=== PATIENT | female | born 1940 | race Caucasian/White ===

== ENCOUNTER 2017-12-20 13:30 | Inpatient (IN) ==
[2017-12-21] MEDS ORDERED: Chlorhexidine Gluconate 2% 1 Pack (2 Cloths) TOPICAL ONE (05:31)
[2017-12-21] MEDS ORDERED: Metoprolol Tartrate 25 MG Tablet PO ONE (05:31)
[2017-12-21] MEDS ORDERED: Sodium Chlor 0.9% Inj 500 ML IV.SIG SCH (06:00)
[2017-12-21] MEDS ORDERED: ceFAZolin 2 GM Premix Inj 2 GM/50 ML PIGGYBACK IV.SIG SCH (06:00)
[2017-12-21 06:23] LABS: INR 1.1 Ratio; Prothrombin Time 10.9 sec (9.8-11.6)
[2017-12-21] MEDS ORDERED: ceFAZolin 2 GM Premix Inj 2 GM/100 ML BAG IV.SIG ONE (07:22)
[2017-12-21] MEDS ORDERED: Lidocaine PF 1% Inj 5 ML Syringe OTHER ONE (07:30)
[2017-12-21] MEDS ORDERED: Phenylephrine/NS 1000 MCG/10ML Syringe IV.PUSH ONE (07:30)
[2017-12-21] MEDS ORDERED: Morphine Inj 4 MG/ML Vial IV.PUSH PRN (10:59)
[2017-12-21 11:00] LABS: ABG Base Excess -0.4 mmol/L (-2-2); ABG PCO2 44 mmHg (38-42); ABG PO2 191 mmHG (61-120)
[2017-12-21] MEDS ORDERED: fentaNYL Citrate Inj 100 MCG/2 ML Ampul ONE (11:50)
[2017-12-21] MEDS ORDERED: Sugammadex Inj 200 MG/2 ML Vial IV.PUSH ONE (11:50)
[2017-12-21] MEDS ORDERED: Sodium Chlor 0.9% Inj 1,000 ML IV.SIG SCH (12:00)
--- NOTE | 2017-12-21 12:00 | MP ---
cc: Júnior Jones MD DATE OF OPERATION: 12/21/2017 DATE OF SERVICE: 12/21/2017 PREOPERATIVE DIAGNOSIS: Left 4 cm lower pole renal mass. POSTOPERATIVE DIAGNOSIS: Left 4 cm lower pole renal mass. PROCEDURE: Robotic-assisted laparoscopic left partial nephrectomy with intraoperative ultrasound. SURGEON: Júnior Jones MD ANESTHESIA: General. COMPLICATIONS: None. ANTIBIOTICS: Ancef 1 gram. DRAINS: 1. Webster catheter. 2. LEONOR drain to bulb suction. ESTIMATED BLOOD LOSS: 300 mL. FLUIDS: 2 liters crystalloids. SPECIMENS: Left renal mass for permanent. DISPOSITION: Stable, to recovery. INDICATIONS: The patient is a 77-year-old female who was found to have an incidental lower pole left renal mass suspicious for renal cell carcinoma. Treatment options were discussed including active surveillance versus percutaneous cryoablation versus partial nephrectomy versus radical nephrectomy. Advantages and disadvantages, and potential side effects and complications of each were discussed. She elected to proceed with a robotic partial nephrectomy. After risks, benefits, and alternatives discussed with the patient wished to proceed and informed consent was obtained. DETAILS OF PROCEDURE: The patient was properly identified and brought back to the operating room and placed supine on the operating table. Appropriate timeout was performed. Under the direction of anesthesiology, the patient was intubated and induced under general anesthetic. Preoperative antibiotics in the form of Ancef 1 gram IV was given within 1 hour of the start of the procedure. The patient was then placed in a right lateral decubitus position with left side up. All pressure points were padded after a Webster catheter was placed. She was then prepped and draped in normal sterile surgical fashion. A stab incision was made superior and lateral to the umbilicus. A Veress needle was then used to gain access to the abdominal cavity. Pneumoperitoneum was achieved. The incision was then extended to approximately 2 cm. Then, under direct visualization, placed a 12 mm long camera port. The abdominal cavity was inspected. There was some small anterior abdominal wall adhesions near the spleen as well as some lower abdominal interior wall adhesions in the midline. However, I began by placing the ports under direct visualization. This began with the 8 mm left robotic port 2 fingerbreadths below the subcostal margin as well as a 5 mm assistant department manager port in the midline superior to the umbilicus. Next, I placed an 8 mm right-handed robotic port approximately a handbreadth off of the ASIS, trying to lay it off of the camera port. I initially attempted to place a 12 mm port in the midline inferiorly to the umbilicus, but there were some adhesions. Therefore, I switched the already placed 5 mm port to a 12 mm assistant department manager port. I then used a 5 mm laparoscopic scope and placed it through 1 of the 8 mm ports to look at the midline. There were some adhesions that were taken down with cold cut scissors. This then opened up a window to pass a 5 mm assistant department manager port inferior to the umbilicus under direct visualization. At this point, all ports were placed without any traumatic injury. The robot was then brought into position. I began by taking down the anterior abdominal wall adhesions. Once these were taken down this exposed the colon. The white line of Toldt was then taken down and the colon was reflected medially to expose the retroperitoneum. She did have a significant amount of fat that was quite friable that did have some periodic small bleeding here and there. At this time, I dissected the colon and mesentery off of the kidney until I found the gonadal vein. Due to the amount of perinephric fat and mesenteric fat as well, it was difficult to actually find the ureter. I followed the gonadal vein up to the insertion of the left renal vein. Since the gonadal vein was tethering the kidney I then did divide the left gonadal vein with a robotic vessel sealer. At this time I was able then to identify the ureter, which appeared to be intact. Fortunately, the mid ureter did get skeletonized in developing the plane between the psoas muscle and the posterior portion of the kidney. At this point, I dissected circumferentially around the renal vein and then I came across the large renal artery which was superior and inferior to the renal vein, but I was able to circumferentially get around the renal artery as well. At this point, I then dissected off the perinephric fat from the kidney and then the large tumor was exposed. It appeared to be mainly exophytic, approximately 4 cm in size, in the lower pole and medial part of the kidney. Intraoperative ultrasound was then used to confirm the depth of the tumor and the margins. At this point for 12.5 grams of mannitol were given by anesthesia to the patient. A straight laparoscope pole was then used to clamp off the artery. At this time I was then able to remove the tumor in its entirety and I was able to dissect down through the collecting system. Once the tumor was then fully removed, it was then placed in the colic gutter for later removal. At this time, a 0 StrataFix with a loop at the end was then used to clamshell the kidney to close the kidney shut. A second 0 StrataFix was also used from the inferior margin to help with hemostatic purposes. The kidney was then clamped for 25 minutes. There was still gentle ooze from the inferior portion of the renorrhaphy. This was then further repaired with the remaining StrataFix. Hem-O-Bill was then used to cinch down the suture. At this point the repair of the kidney appeared to be dry, with minimal bleeding. Evicel was then used for hemostatic purposes. The tumor was then placed in the EndoCatch bag and removed through the 12 mm assistant department manager port incision. A second look was performed. The renal bed appeared to be dry. A LEONOR drain was then placed through the 8 mm right hand robotic port, it was secured with 3-0 nylon. All ports were removed under direct visualization. Incision was then closed with 4-0 Monocryl and reinforced with Dermabond. Sponge, needle, and instrument counts were correct at the end of the case. The patient was subsequently extubated and sent to recovery room in stable condition. She was then transferred to the floor for routine postoperative care. MD GENNY Barclay/umair , 11:17 AM , 11:30 AM
[2017-12-21] MEDS ORDERED: *morphine SULFATE 4 MG/ML PERIprocedure ONLY ONE ×2 (12:40→14:10)
[2017-12-21] MEDS ORDERED: *Ondansetron Inj 4 MG/2 ML Vial PERIprocedural Use ONLY ONE (12:43)
[2017-12-21 12:45] LABS: Baso % (Auto) 0.2 % (0.0-2.0); Eos % (Auto) 0.2 % (0.0-4.0); Hematocrit 38.6 % (35.0-46.0); Hemoglobin 12.6 gm/dL (11.6-15.3); Lymph # (Auto) 1.2 th/mm3 (1.0-4.8); Lymph % (Auto) 8.5 % (9.0-44.0); Mean Corpuscular HGB Conc 32.8 % (32.0-36.0); Mean Corpuscular Hemoglobin 31.1 pg (27.0-34.0); Mean Corpuscular Volume 94.8 fL (80.0-100.0); Mean Platelet Volume 9.1 fL (7.0-11.0); Mono # (Auto) 0.3 th/mm3 (0.0-0.9); Mono % (Auto) 2.3 % (0.0-8.0); Neut # (Auto) 12.1 th/mm3 (1.8-7.7); Neut % (Auto) 88.8 % (16.0-70.0); Platelet Count 175 th/mm3 (150-450); Red Blood Count 4.07 mil/mm3 (4.00-5.30); Red Cell Distribution Width 13.7 % (11.6-17.2); White Blood Count 13.6 th/mm3 (4.0-11.0)
[2017-12-21 13:07] LABS: Anion Gap 7 meq/L (5-15); Blood Urea Nitrogen 9 mg/dL (7-18); Calcium 7.7 mg/dL (8.5-10.1); Chloride 106 meq/L (98-107); Glomerular Filtration Rate Greater Than 89 mL/min (>89); Glucose,Random 150 mg/dL (74-106); Potassium 3.3 meq/L (3.5-5.1); Sodium 141 meq/L (136-145)
[2017-12-21] MEDS: Latanoprost 0.005% Opth Drops 2.5 ML Bottle EACH EYE SCH (17:28)
--- NOTE | 2017-12-21 20:17 | ECG ---
Date Performed: 12/21/2017 Time Performed: 06:54:07 PTAGE: 77 years EKG: Sinus rhythm RIGHT BUNDLE BRANCH BLOCK ABNORMAL ECG PREVIOUS TRACING : 07/08/2007 13.58 Compared to previous tracing, RBBB present DOCTOR: Cristofer Glass Interpretating Date/Time 12/21/2017 20:17:31
[2017-12-21] MEDS: Docusate Sodium 100 MG Capsule PO SCH (20:27)
[2017-12-21] MEDS: Dorzolamide-Timolol 2/0.5% Opth Drops 10 ML Bottle EACH EYE SCH (20:27)
[2017-12-22 05:03] LABS: Hematocrit 35.4 % (35.0-46.0); Hemoglobin 11.7 gm/dL (11.6-15.3); Mean Corpuscular Hemoglobin 31.4 pg (27.0-34.0); Mean Platelet Volume 10.1 fL (7.0-11.0); Platelet Count 150 th/mm3 (150-450); Red Blood Count 3.72 mil/mm3 (4.00-5.30); Red Cell Distribution Width 13.8 % (11.6-17.2); White Blood Count 12.3 th/mm3 (4.0-11.0)
[2017-12-22] MEDS: Levothyroxine 88 MCG Tablet PO SCH (05:23)
[2017-12-22 06:02] LABS: Anion Gap 8 meq/L (5-15); Blood Urea Nitrogen 9 mg/dL (7-18); Calcium 7.4 mg/dL (8.5-10.1); Carbon Dioxide 27.3 meq/L (21.0-32.0); Chloride 107 meq/L (98-107); Glomerular Filtration Rate Greater Than 89 mL/min (>89); Glucose,Random 112 mg/dL (74-106); Sodium 142 meq/L (136-145)
[2017-12-22 06:24] LABS: Total Protein 6.2 g/dL (6.4-8.2)
[2017-12-22] MEDS: Docusate Sodium 100 MG Capsule PO SCH ×2 (08:48→20:44)
[2017-12-22] MEDS: amLODIPine 5 MG Tablet PO SCH (08:49)
[2017-12-22] MEDS: Dorzolamide-Timolol 2/0.5% Opth Drops 10 ML Bottle EACH EYE SCH ×2 (08:49→20:44)
--- NOTE | 2017-12-22 12:45 | P.PNURO ---
Subjective Patient symptoms today: c/o nausea. Thinks it is related to Percocet. Has not been out of bed. C/o mild , crampy abdominal pain. Denies fevers/chills/CP/SOB. Objective Vital Signs: Vital Signs 12/21/17 12:45 12/21/17 13:00 12/21/17 13:15 Temperature Pulse Rate 71 72 73 Respiratory Rate 12 11 L 12 Blood Pressure 111/62 114/59 L 110/56 L Pulse Oximetry 92 L 90 L 90 L 12/21/17 14:00 12/21/17 15:00 12/21/17 20:00 Temperature 98.4 F 97.5 F L Pulse Rate 76 76 87 Respiratory Rate 12 14 18 Blood Pressure 113/57 L 123/59 L 114/55 L Pulse Oximetry 92 L 93 L 94 L 12/22/17 00:00 12/22/17 08:00 Temperature 97.8 F 97.1 F L Pulse Rate 82 77 Respiratory Rate 18 18 Blood Pressure 107/53 L 99/54 L Pulse Oximetry 95 92 L Intake & Output 12/21/17 12/22/17 12/22/17 18:59 06:59 18:59 Intake Total 2820 / 2820 1460 / 1460 1000 / 1000 Output Total 1450 / 1450 975 / 975 Balance 1370 / 1370 485 / 485 1000 / 1000 Weight 67.2 kg Intake: IV 1200 / 1200 1100 / 1100 1000 / 1000 NS + KCl 20 mEq Inj 1,000 ML @ 1000 / 1000 1000 / 1000 100 mls/hr IV.CONT .Q10H [facility] Rx #:[id number] LR 1000 mL Inj 1,000 ML @ 30 1000 / 1000 mls/hr IV.SIG .Q24H [facility] Rx#: [id number] Ancef 2 GM Premix Inj 2 gm In 100 / 100 100 ml @ 0 mls/hr IV.SIG .STK- [facility] Rx#:[id number] Ancef Inj 1,000 MG In NS Inj 100 / 100 100 / 100 100 ML @ 200 mls/hr IV.SIG Q8H [facility] Rx#:[id number] Oral 120 / 120 360 / 360 Anesthesia Amount 1500 / 1500 Output: Estimated Blood Loss 300 / 300 Urine Amount (Catheter) 1030 / 1030 975 / 975 Indwelling Urethral Catheter 1030 / 1030 975 / 975 Wound Drainage 120 / 120 # 1 Left Lower Abdomen 120 / 120 Other: # Voids 1 Result Diagrams: 12/22/17 03:58 12/22/17 03:58 Medications and IVs: Active Medications Generic Name Dose Route Start Last Admin Trade Name Freq PRN Reason Stop Dose Admin Amlodipine Besylate 5 mg 12/22/17 09:00 12/22/17 08:49 Norvasc PO Not Given DAILY [facility] Atorvastatin Calcium 20 mg 12/21/17 21:00 12/21/17 20:27 Lipitor PO 20 mg HS [facility] Administration Docusate Sodium 100 mg 12/21/17 21:00 12/22/17 08:48 Colace PO Not Given BID [facility] Dorzolamide/Timolol 1 drop 12/21/17 21:00 12/22/17 08:49 Cosopt 2/0.5% Opth Drops EACH EYE 1 drop BID [facility] Administration Potassium Chloride/Sodium Chloride 1,000 mls @ 100 mls/hr 12/21/17 16:00 11:06 Ns + Kcl 20 Meq Inj IV.CONT 125 mls/hr .Q10H [facility] Administration Latanoprost 1 drop 12/21/17 18:00 12/21/17 17:28 Xalatan 0.005% Opth Drops EACH EYE 1 drop QPM [facility] Administration Levothyroxine Sodium 88 mcg 12/22/17 06:00 12/22/17 05:23 Synthroid PO 88 mcg DAILY@0600 [facility] Administration Morphine Sulfate 4 mg 12/21/17 10:59 Morphine Inj IV.PUSH Q4H PRN BREAKTHROUGH PAIN Ondansetron HCl 4 mg 12/21/17 10:59 12/22/17 08:48 Zofran Inj IV.PUSH 4 mg Q6H PRN Administration NAUSEA OR VOMITING Oxycodone/Acetaminophen 2 tab 12/21/17 11:00 12/22/17 05:24 Percocet 5/325 Mg PO 2 tab Q4H PRN Administration PAIN SCALE 6 TO 10 Oxycodone/Acetaminophen 1 tab 12/21/17 11:01 Percocet 5/325 Mg PO Q4H PRN PAIN SCALE 3 TO 5 Ropinirole HCl 0.25 mg 12/21/17 11:03 Requip PO TID PRN Restless Leg(S) Objective Remarks: NAD. A/O x 3 CTAB RRR abd soft, distended, mild tenderness on left side. Inc c/d/i. Ext NT. no edema. Assessment and Plan - Plan POD #1 s/p Robotic Left Partial Nephrectomy -Adjust pain medication -Hgb stable. Repeat in A.M. -Ambulate, IS -GI/DVT prophylaxis -Add Reglan.
[2017-12-22] MEDS ORDERED: Sod Chloride 0.9% Inj 1,000 ML IV.SIG SCH (12:59)
[2017-12-22] MEDS ORDERED: Sodium Chlor 0.9% Inj 1,000 ML IV.SIG SCH (13:00)
[2017-12-22 17:02] LABS: ABG Base Excess -0.6 mmol/L (-2-2); ABG PCO2 65 mmHg (38-42); ABG PO2 61 mmHg (61-120)
--- NOTE | 2017-12-22 17:23 | XR ---
EXAM DATE: 12/22/2017 5:16 PM EDT AGE/SEX: 77 years / Female INDICATIONS: Abdominal distention post partial left nephrectomy. CLINICAL DATA: This is the patient's initial encounter. Patient reports that signs and symptoms have been present for 1 day and indicates a pain score of 9/10. MEDICAL/SURGICAL HISTORY: None. . left partial nephrectomy COMPARISON: No prior exams available for comparison. FINDINGS: 3 view abdomen demonstrate there is a curvilinear stent or drain overlying the left iliac crest. Of u ncertain etiology could be external to the patient. The bowel gas pattern is unremarkable. There is a pical scar disease without pathologic calcifications. CONCLUSION: Catheter overlies left iliac crest. Bowel gas pattern is normal Electronically signed by: Adams Ag MD 12/22/2017 5:21 PM EDT
--- NOTE | 2017-12-22 17:29 | XR ---
EXAM DATE: 12/22/2017 5:19 PM EDT AGE/SEX: 77 years / Female INDICATIONS: . Shortness of breath. CLINICAL DATA: This is the patient's initial encounter. Patient reports that signs and symptoms have been present for 1 day and indicates a pain score of 7/10. MEDICAL/SURGICAL HISTORY: None. . left partial nephrectomy COMPARISON: POI, XR CHEST PA AND LAT, 05/10/2017. . FINDINGS: Two-view chest demonstrate the calcified implants bilaterally. There are small bilateral pleural effu sions left greater than right. The heart and mediastinum unremarkable. There is long-standing interst itial lung disease with diffuse emphysema. CONCLUSION: Interstitial lung disease. Small bilateral pleural effusions. Electronically signed by: Adams Ag MD 12/22/2017 5:28 PM EDT
[2017-12-22 17:33] LABS: Hematocrit 33.9 % (35.0-46.0); Hemoglobin 10.9 gm/dL (11.6-15.3)
--- NOTE | 2017-12-22 18:39 | P.CONIM ---
History of Present Illness Primary Care Provider: PROVIDER NON STAFF Family Provider: PROVIDER NON STAFF History of Present Illness: 77-year-old female history of hypothyroidism, hypertension, hyperlipidemia who is postoperative day 1 for elective robotic left partial nephrectomy. She says that she has had some nausea without any vomiting. Denies any chest pain. She reports a 2 month history of progressively worsening shortness of breath, especially when she is carrying something. She says she is seeing cardiology, Dr. Gutierrez, and workup has so far been negative. She is not on oxygen at home. Currently O2 sats 93% on 3 L. Patient says she is not feeling any more short of breath than she has been over the past couple months. She reports that post surgical abdominal pain is under control. Review of Systems All other systems reviewed negative except as stated in HPI [facility] - History History Provided By: Patient - Medical History Medical History: Medical History (Last Reviewed 12/21/17 @ 06:08 by Namita Arteaga) Glaucoma High cholesterol History of blood product transfusion Hypertension Hypothyroidism Kidney carcinoma Osteoporosis RLS (restless legs syndrome) - Surgical History Surgical History: Surgical History (Last Reviewed 12/21/17 @ 06:08 by Namita Arteaga) History of History of abdominoplasty History of breast augmentation History of cataract extraction with lens replacement History of facelift - Family History Family History: Family History (Last Updated 12/22/17 @ 18:38 by Jason Vazquez MD) Father Heart disease Mother Heart disease - Tobacco History Second Hand Smoke Exposure: No Smoking Status: Former smoker - Alcohol History How Often Do You Have a Drink Containing Alcohol: Never - Substance Use History Substance History: No History of Abuse Medications and Allergies Active Medications: Active Medications Albuterol (Duoneb Neb (Ayesha)) 1 ampul NEB Q6HR WHILE AWAKE NEB [facility] Albuterol (Duoneb Neb (Prn)) 1 ampul NEB Q4HR NEB PRN PRN Reason: SHORTNESS OF BREATH/WHEEZING Last Admin: 12/22/17 17:51 Dose: 1 ampul Amlodipine Besylate (Norvasc) 5 mg PO DAILY [facility] Last Admin: 12/22/17 08:49 Dose: Not Given Atorvastatin Calcium (Lipitor) 20 mg PO HS [facility] Last Admin: 12/21/17 20:27 Dose: 20 mg Docusate Sodium (Colace) 100 mg PO BID [facility] Last Admin: 12/22/17 08:48 Dose: Not Given Dorzolamide/Timolol (Cosopt 2/0.5% Opth Drops) 1 drop EACH EYE BID [facility] Last Admin: 12/22/17 08:49 Dose: 1 drop Ampicillin Sodium/Sulbactam (Sodium 3 gm/ Sodium Chloride) 100 mls @ 200 mls/ hr IV.SIG Q6HR [facility] Latanoprost (Xalatan 0.005% Opth Drops) 1 drop EACH EYE QPM [facility] Last Admin: 12/21/17 17:28 Dose: 1 drop Levothyroxine Sodium (Synthroid) 88 mcg PO DAILY@0600 [facility] Last Admin: 12/22/17 05:23 Dose: 88 mcg Methylprednisolone Sodium Succinate (Solumedrol Inj) 40 mg IV.PUSH Q6HR [facility] Metoclopramide HCl (Reglan Inj) 5 mg IV.PUSH Q8H [facility]; Protocol Last Admin: 12/22/17 14:58 Dose: 5 mg Ondansetron HCl (Zofran Inj) 4 mg IV.PUSH Q6H PRN PRN Reason: NAUSEA OR VOMITING Last Admin: 12/22/17 08:48 Dose: 4 mg Ropinirole HCl (Requip) 0.25 mg PO TID PRN PRN Reason: Restless Leg(S) Allergies Allergy/AdvReac Type Severity Reaction Status Date / Time No Known Allergies Allergy Verified 12/21/17 06:08 Home Medications Medication Instructions Recorded Confirmed Type alendronate 70 mg PO QWEEK 12/19/17 12/21/17 History amlodipine 5 mg PO DAILY 12/19/17 12/21/17 History atorvastatin 20 mg PO HS 12/19/17 12/21/17 History biotin 10,000 mcg PO DAILY 12/19/17 12/21/17 History calcium carbonate [Calcium 500] 500 mg PO DAILY 12/19/17 12/21/17 History cholecalciferol (vitamin D3) 1,000 unit PO DAILY 12/19/17 12/21/17 History [Vitamin D3] levothyroxine 88 mcg PO DAILY 12/19/17 12/21/17 History ropinirole 0.25 mg PO TID PRN 12/19/17 12/21/17 History dorzolamide-timolol 1 drp OPHTHALMIC (EYE) BID 12/21/17 12/21/17 History latanoprost 1 drp OPHTHALMIC (EYE) QPM 12/21/17 12/21/17 History Exam Vital signs: Vital Signs 12/21/17 20:00 12/22/17 00:00 12/22/17 08:00 Temperature 97.5 F L 97.8 F 97.1 F L Pulse Rate 87 82 77 Respiratory Rate 18 18 18 Blood Pressure 114/55 L 107/53 L 99/54 L Pulse Oximetry 94 L 95 92 L 12/22/17 12:00 12/22/17 15:38 12/22/17 15:40 Temperature 97.3 F L Pulse Rate 74 Respiratory Rate 18 Blood Pressure 93/55 L Pulse Oximetry 94 L 70 L 92 L 12/22/17 16:00 12/22/17 16:15 12/22/17 17:54 Temperature 97.8 F Pulse Rate 93 H 88 Respiratory Rate 22 18 Blood Pressure 115/55 L Pulse Oximetry 92 L 97 12/22/17 17:55 Temperature Pulse Rate Respiratory Rate Blood Pressure Pulse Oximetry 93 L Intake & Output 12/21/17 12/22/17 12/22/17 18:59 06:59 18:59 Intake Total 2820 / 2820 1460 / 1460 3570 / 3570 Output Total 1450 / 1450 975 / 975 265 / 265 Balance 1370 / 1370 485 / 485 3305 / 3305 Weight 67.2 kg Intake: IV 1200 / 1200 1100 / 1100 3250 / 3250 NS + KCl 20 mEq Inj 1,000 ML @ 1000 / 1000 1250 / 1250 125 mls/hr IV.CONT .Q8H [facility] Rx# :[id number] LR 1000 mL Inj 1,000 ML @ 30 1000 / 1000 mls/hr IV.SIG .Q24H [facility] Rx#: [id number] NS Inj 1,000 ML @ Wide Open IV. 1000 / 1000 SIG BOLUS [facility] Rx#:[id number] Ancef 2 GM Premix Inj 2 gm In 100 / 100 100 ml @ 0 mls/hr IV.SIG .STK- [facility] Rx#:[id number] Ancef Inj 1,000 MG In NS Inj 100 / 100 100 / 100 100 ML @ 200 mls/hr IV.SIG Q8H [facility] Rx#:[id number] Oral 120 / 120 360 / 360 320 / 320 Anesthesia Amount 1500 / 1500 Output: Urine 175 / 175 Estimated Blood Loss 300 / 300 Urine Amount (Catheter) 1030 / 1030 975 / 975 Indwelling Urethral Catheter 1030 / 1030 975 / 975 Wound Drainage 120 / 120 90 / 90 # 1 Left Lower Abdomen 120 / 120 90 / 90 Other: # Voids 1 Date of Last Bowel Movement 12/21/17 # Bowel Movements 0 Narrative: GENERAL: patient sitting up in bed. Appears comfortable. She is awake, alert. Oriented 3. SKIN: Warm and dry. HEAD: Atraumatic. Normocephalic. EYES: Pupils equal and round. No scleral icterus. No injection or drainage. ENT: No nasal bleeding or discharge. Mucous membranes pink and moist. NECK: Trachea midline. No JVD. CARDIOVASCULAR: Regular rate and rhythm. RESPIRATORY: No accessory muscle use. Clear to auscultation. Breath sounds equal bilaterally. no rhonchi, no wheezes. GASTROINTESTINAL: Abdomen somewhat distended but nontender.. Hepatic and splenic margins not palpable. MUSCULOSKELETAL: Extremities without clubbing, cyanosis, or edema. No obvious deformities. NEUROLOGICAL: Awake and alert. No obvious cranial nerve deficits. Motor grossly within normal limits. Five out of 5 muscle strength in the arms and legs. Normal speech. PSYCHIATRIC: Appropriate mood and affect; insight and judgment normal. Results - Labs CBC & Chem 7: 12/22/17 16:33 12/22/17 03:58 Labs: Laboratory Results - last 24 hr 12/22/17 12/22/17 12/22/17 03:58 03:58 04:30 WBC 12.3 H RBC 3.72 L Hgb 11.7 Hct 35.4 MCV 95.0 MCH 31.4 MCHC 33.0 RDW 13.8 Plt Count 150 MPV 10.1 Puncture Site Patient Temperature O2 Saturation ABG pH ABG pCO2 ABG pO2 ABG HCO3 ABG O2 Content ABG Base Excess ABG Methemoglobin Xavier Test Hemoglobin Carboxyhemoglobin O2 Delivery Device Liter Flow Critical Value Sodium 142 Potassium 4.0 Chloride 107 Carbon Dioxide 27.3 Anion Gap 8 BUN 9 Creatinine 0.52 Estimated GFR Greater than 89 Random Glucose 112 H Calcium 7.4 L* Prot Corrected Calcium 7.9 L Total Protein 6.2 L Nuha-Renal Creatinine 0.4463 12/22/17 12/22/17 16:33 16:50 WBC RBC Hgb 10.9 L Hct 33.9 L MCV MCH MCHC RDW Plt Count MPV Puncture Site Left radial Patient Temperature 98.6 O2 Saturation 87 L* ABG pH 7.23 L* ABG pCO2 65 H* ABG pO2 61 ABG HCO3 26 ABG O2 Content 13.4 ABG Base Excess -0.6 ABG Methemoglobin 1.1 Xavier Test Present Hemoglobin 10.9 L Carboxyhemoglobin 1.5 O2 Delivery Device Nasal cannula Liter Flow 3.00 Critical Value Yes Sodium Potassium Chloride Carbon Dioxide Anion Gap BUN Creatinine Estimated GFR Random Glucose Calcium Prot Corrected Calcium Total Protein Nuha-Renal Creatinine - Imaging Impressions Abdomen X-Ray 12/22/17 00:00 CONCLUSION: Catheter overlies left iliac crest. Bowel gas pattern is normal Chest X-Ray 12/22/17 00:00 CONCLUSION: Interstitial lung disease. Small bilateral pleural effusions. Assessment and Plan - Plan //Postoperative day one left partial nephrectomy Postoperative management as per surgical service Due to respiratory failure, have discontinued all narcotics. //Acute hypercapnic respiratory failure //Acute hypoxic respiratory failure //Suspected aspiration pneumonia //Leukocytosis -ABG reviewed with pH 7.23, pCO2 65 Chest x-ray was right middle lobe infiltrate. Bilateral pleural effusions. Check BNP. = Will start IV steroids, scheduled and as needed DuoNeb's, incentive spirometer and Acapella. Discontinue all narcotics for now. Consult pulmonology. -Discontinue IV fluids. = Patient denies any chest pain, however EKG done yesterday changed from 10 years ago. New right bundle branch block. -Repeat ABG after duonebs and IV steroids. //Intraoperative blood loss. Patient received 1 unit of PRBCs. //Hyperlipidemia. Chronic. Continue home meds //Hypertension. Blood pressure acceptable. Continue home meds. //Glaucoma. Continue home drops //Hypothyroidism. Continue home medication. Check TSH //Restless leg syndrome. Continue home meds. Discussed Condition With: patient, nurse, at bedside.
[2017-12-22] MEDS: MethylPREDNISolone Sod Succinate Inj 40 MG/ML Vial IV.PUSH SCH ×2 (18:41→23:46)
[2017-12-22] MEDS: Latanoprost 0.005% Opth Drops 2.5 ML Bottle EACH EYE SCH (18:41)
[2017-12-22] MEDS: Ampicillin/Sulbactam Inj 3 GM in Sodium Chloride 0.9% Inj 100 ML IV.SIG SCH ×2 (18:41→23:46)
[2017-12-22 19:16] LABS: ABG Base Excess -0.4 mmol/L (-2-2); ABG PCO2 63 mmHg (38-42); ABG PO2 60 mmHg (61-120)
[2017-12-22 22:15] LABS: ABG Base Excess 0.1 mmol/L (-2-2); ABG PCO2 59 mmHg (38-42); ABG PO2 74 mmHg (61-120)
[2017-12-23 05:11] LABS: Hematocrit 33.5 % (35.0-46.0); Hemoglobin 11.1 gm/dL (11.6-15.3); Mean Corpuscular HGB Conc 33.1 % (32.0-36.0); Mean Corpuscular Hemoglobin 31.4 pg (27.0-34.0); Mean Platelet Volume 10.1 fL (7.0-11.0); Platelet Count 125 th/mm3 (150-450); Red Blood Count 3.53 mil/mm3 (4.00-5.30); Red Cell Distribution Width 14.2 % (11.6-17.2); White Blood Count 11.2 th/mm3 (4.0-11.0)
[2017-12-23 05:29] LABS: Anion Gap 6 meq/L (5-15); Blood Urea Nitrogen 11 mg/dL (7-18); Calcium 7.8 mg/dL (8.5-10.1); Carbon Dioxide 28.6 meq/L (21.0-32.0); Chloride 108 meq/L (98-107); Glomerular Filtration Rate Greater Than 89 mL/min (>89); Glucose,Random 137 mg/dL (74-106); Sodium 143 meq/L (136-145)
[2017-12-23] MEDS: Levothyroxine 88 MCG Tablet PO SCH (05:45)
[2017-12-23] MEDS: MethylPREDNISolone Sod Succinate Inj 40 MG/ML Vial IV.PUSH SCH ×4 (05:45→23:56)
[2017-12-23] MEDS: Ampicillin/Sulbactam Inj 3 GM in Sodium Chloride 0.9% Inj 100 ML IV.SIG SCH ×4 (05:46→23:57)
[2017-12-23] MEDS: Docusate Sodium 100 MG Capsule PO SCH ×2 (09:32→21:08)
[2017-12-23] MEDS: amLODIPine 5 MG Tablet PO SCH (09:32)
[2017-12-23] MEDS: Dorzolamide-Timolol 2/0.5% Opth Drops 10 ML Bottle EACH EYE SCH ×2 (09:37→21:09)
--- NOTE | 2017-12-23 11:20 | P.PNURO ---
Subjective Patient symptoms today: Pt was seen at the bedside. Pain controlled. Tolerates current diet well. IM consulted for SOB and saw her yesterday. recommended Pulmonology consult. Also IV fluids and narcotics were d/c . She is refusing BiPAP. NO BM yet. Admits passing small amount of flatus. Nausea is better. Her SOB is better today. She still feels weak and cant walk, but sits in the chair Labs and VS are stable. As per Pulmonary CTA ordered Objective Vital Signs: Vital Signs 12/22/17 12:00 12/22/17 15:38 12/22/17 15:40 Temperature 97.3 F L Pulse Rate 74 Respiratory Rate 18 Blood Pressure 93/55 L Pulse Oximetry 94 L 70 L 92 L 12/22/17 16:00 12/22/17 16:15 12/22/17 17:54 Temperature 97.8 F Pulse Rate 93 H 88 Respiratory Rate 22 18 Blood Pressure 115/55 L Pulse Oximetry 92 L 97 12/22/17 17:55 12/22/17 20:00 12/22/17 20:20 Temperature 97.4 F L Pulse Rate 92 H 91 H Respiratory Rate 20 20 Blood Pressure 133/62 Pulse Oximetry 93 L 91 L 12/22/17 21:09 12/22/17 23:19 12/23/17 00:00 Temperature 98 F Pulse Rate 92 H Respiratory Rate 18 Blood Pressure 116/56 L Pulse Oximetry 94 L 94 L 91 L 12/23/17 04:00 12/23/17 08:00 Temperature 98.2 F 97.7 F Pulse Rate 89 102 H Respiratory Rate 18 18 Blood Pressure 127/59 L 153/68 H Pulse Oximetry 91 L 86 L Intake & Output 12/22/17 12/23/17 12/23/17 18:59 06:59 18:59 Intake Total 3570 / 3570 540 / 540 Output Total 265 / 265 720 / 720 Balance 3305 / 3305 -180 / -180 Weight 69.1 kg Intake: IV 3250 / 3250 300 / 300 NS + KCl 20 mEq Inj 1,000 ML @ 1250 / 1250 125 mls/hr IV.CONT .Q8H AYESHA Rx# :[id number] Unasyn Inj 3 GM In NS Inj 100 300 / 300 ML @ 200 mls/hr IV.SIG Q6HR AYESHA Rx#:[id number] NS Inj 1,000 ML @ Wide Open IV. 1000 / 1000 SIG BOLUS AYESHA Rx#:[id number] Oral 320 / 320 240 / 240 Output: Urine 175 / 175 630 / 630 Wound Drainage 90 / # 1 Left Lower Abdomen 90 / 90 Other: # Voids 2 Date of Last Bowel Movement 12/21/17 12/21/17 # Bowel Movements 0 Result Diagrams: 12/23/17 03:51 12/23/17 03:51 Imaging: Impressions Abdomen X-Ray 12/22/17 00:00 CONCLUSION: Catheter overlies left iliac crest. Bowel gas pattern is normal Chest X-Ray 12/22/17 00:00 CONCLUSION: Interstitial lung disease. Small bilateral pleural effusions. Medications and IVs: Active Medications Generic Name Dose Route Start Last Admin Trade Name Freq PRN Reason Stop Dose Admin Albuterol 1 ampul 12/22/17 20:00 12/23/17 08:51 Duoneb Neb (Ayesha) NEB 1 ampul Q6HR WHILE AWAKE NEB AYESHA Administration Albuterol 1 ampul 12/22/17 16:09 12/22/17 17:51 Duoneb Neb (Prn) NEB 1 ampul Q4HR NEB PRN Administration SHORTNESS OF BREATH/WHEEZING Amlodipine Besylate 5 mg 12/22/17 09:00 12/23/17 09:32 Norvasc PO 5 mg DAILY AYESHA Administration Atorvastatin Calcium 20 mg 12/21/17 21:00 12/22/17 20:44 Lipitor PO 20 mg HS AYESHA Administration Docusate Sodium 100 mg 12/21/17 21:00 12/23/17 09:32 Colace PO 100 mg BID AYESHA Administration Dorzolamide/Timolol 1 drop 12/21/17 21:00 12/23/17 09:37 Cosopt 2/0.5% Opth Drops EACH EYE 1 drop BID AYESHA Administration Ampicillin Sodium/Sulbactam 100 mls @ 200 mls/hr 12/22/17 19:00 12/23/17 06: 22 Sodium 3 gm/ Sodium Chloride IV.SIG Infused Q6HR AYESHA Infusion Latanoprost 1 drop 12/21/17 18:00 12/22/17 18:41 Xalatan 0.005% Opth Drops EACH EYE 1 drop QPM AYESHA Administration Levothyroxine Sodium 88 mcg 12/22/17 06:00 09/21/18 05:45 Synthroid PO 88 mcg DAILY@0600 YAESHA Administration Methylprednisolone Sodium Succinate 40 mg 12/22/17 18:15 12/23/17 05:45 Solumedrol Inj IV.PUSH 40 mg Q6HR AYESHA Administration Metoclopramide HCl 5 mg 12/22/17 14:00 12/23/17 05:45 Reglan Inj IV.PUSH 5 mg Q8H AYESHA Administration Protocol Ondansetron HCl 4 mg 12/21/17 10:59 12/22/17 08:48 Zofran Inj IV.PUSH 4 mg Q6H PRN Administration NAUSEA OR VOMITING Ropinirole HCl 0.25 mg 12/21/17 11:03 Requip PO TID PRN Restless Leg(S) Objective Remarks: NAD. A/O x 3 CTAB RRR abd soft, slightly less distended, Inc c/d/i. Ext NT. no edema. Assessment and Plan - Plan POD #2 s/p Robotic Left Partial Nephrectomy -Continue management as per IM, consult and recs are appreciated -Pain control prn -Hgb stable. -Ambulate as tolerated, IS -Advance diet - LEONOR to be removed -GI/DVT prophylaxis -Follow up on Pulm consult and CTA - PT to help with ambulating Discussed Condition With: Dr Robert BLANTON attending
--- NOTE | 2017-12-23 11:46 | P.PNIM ---
Subjective Interval history: Patient says she is feeling all right. Denies any chest pain or shortness of breath. Denies nausea vomiting. Physical Exam Vital signs: Vital Signs 12/22/17 12:00 12/22/17 15:38 12/22/17 15:40 Temperature 97.3 F L Pulse Rate 74 Respiratory Rate 18 Blood Pressure 93/55 L Pulse Oximetry 94 L 70 L 92 L 12/22/17 16:00 12/22/17 16:15 12/22/17 17:54 Temperature 97.8 F Pulse Rate 93 H 88 Respiratory Rate 22 18 Blood Pressure 115/55 L Pulse Oximetry 92 L 97 12/22/17 17:55 12/22/17 20:00 12/22/17 20:20 Temperature 97.4 F L Pulse Rate 92 H 91 H Respiratory Rate 20 20 Blood Pressure 133/62 Pulse Oximetry 93 L 91 L 12/22/17 21:09 12/22/17 23:19 12/23/17 00:00 Temperature 98 F Pulse Rate 92 H Respiratory Rate 18 Blood Pressure 116/56 L Pulse Oximetry 94 L 94 L 91 L 12/23/17 04:00 12/23/17 08:00 Temperature 98.2 F 97.7 F Pulse Rate 89 102 H Respiratory Rate 18 18 Blood Pressure 127/59 L 153/68 H Pulse Oximetry 91 L 86 L Intake & Output 12/22/17 12/23/17 12/23/17 18:59 06:59 18:59 Intake Total 3570 / 3570 540 / 540 Output Total 265 / 265 720 / 720 Balance 3305 / 3305 -180 / -180 Weight 69.1 kg Intake: IV 3250 / 3250 300 / 300 NS + KCl 20 mEq Inj 1,000 ML @ 1250 / 1250 125 mls/hr IV.CONT .Q8H TICO Rx# :[id number] Unasyn Inj 3 GM In NS Inj 100 300 / 300 ML @ 200 mls/hr IV.SIG Q6HR TICO Rx#:[id number] NS Inj 1,000 ML @ Wide Open IV. 1000 / 1000 SIG BOLUS TICO Rx#:[id number] Oral 320 / 320 240 / 240 Output: Urine 175 / 175 630 / 630 Wound Drainage # 1 Left Lower Abdomen Other: # Voids 2 Date of Last Bowel Movement 12/21/17 12/21/17 # Bowel Movements 0 Narrative: GENERAL: Somnolent, wakes up for exam. Patient lying in bed. Appears comfortable. SKIN: Warm and dry. HEAD: Normocephalic. EYES: No scleral icterus. No injection or drainage. NECK: Supple, trachea midline. No JVD. CARDIOVASCULAR: Regular rate and rhythm without murmurs, gallops, or rubs. RESPIRATORY: Breath sounds equal bilaterally. No accessory muscle use. GASTROINTESTINAL: Abdomen soft, non-tender, nondistended. MUSCULOSKELETAL: No cyanosis, or edema. BACK: Nontender without obvious deformity. No CVA tenderness. - Urinary Catheter Management Indwelling Urethral Catheter Cath placed during this visit: yes Reason for continuing: Hourly intake/output Insertion date: 12/21/17 Insertion time: 07:45 Results - Labs CBC & Chem 7: 12/23/17 03:51 12/23/17 03:51 Laboratory Results - last 24 hr 12/22/17 12/22/17 12/22/17 03:58 03:58 16:33 WBC RBC Hgb 10.9 L Hct 33.9 L MCV MCH MCHC RDW Plt Count MPV Puncture Site Patient Temperature O2 Saturation ABG pH ABG pCO2 ABG pO2 ABG HCO3 ABG O2 Content ABG Base Excess ABG Methemoglobin Xavier Test Hemoglobin Carboxyhemoglobin O2 Delivery Device Liter Flow Vent Setting Inspired O2 Critical Value Sodium Potassium Chloride Carbon Dioxide Anion Gap BUN Creatinine Estimated GFR Random Glucose Calcium B-Natriuretic Peptide 115 H TSH 0.503 12/22/17 12/22/17 12/22/17 16:50 19:05 22:04 WBC RBC Hgb Hct MCV MCH MCHC RDW Plt Count MPV Puncture Site Left radial Right radial Right brachial Patient Temperature 98.6 98.6 98.6 O2 Saturation 87 L* 87 L* 92 ABG pH 7.23 L* 7.24 L* 7.27 L* ABG pCO2 65 H* 63 H* 59 H* ABG pO2 61 60 L 74 ABG HCO3 26 26 26 ABG O2 Content 13.4 13.3 14.5 ABG Base Excess -0.6 -0.4 0.1 ABG Methemoglobin 1.1 1.0 1.1 Xavier Test Present Present Present Hemoglobin 10.9 L 10.8 L 11.1 L Carboxyhemoglobin 1.5 1.6 1.5 O2 Delivery Device Nasal cannula Nasal cannula Bipap Liter Flow 3.00 3.00 Vent Setting See comments Inspired O2 40 Critical Value Yes Yes Yes Sodium Potassium Chloride Carbon Dioxide Anion Gap BUN Creatinine Estimated GFR Random Glucose Calcium B-Natriuretic Peptide TSH 12/23/17 12/23/17 03:51 03:51 WBC 11.2 H RBC 3.53 L Hgb 11.1 L Hct 33.5 L MCV 95.0 MCH 31.4 MCHC 33.1 RDW 14.2 Plt Count 125 L MPV 10.1 Puncture Site Patient Temperature O2 Saturation ABG pH ABG pCO2 ABG pO2 ABG HCO3 ABG O2 Content ABG Base Excess ABG Methemoglobin Xavier Test Hemoglobin Carboxyhemoglobin O2 Delivery Device Liter Flow Vent Setting Inspired O2 Critical Value Sodium 143 Potassium 4.0 Chloride 108 H Carbon Dioxide 28.6 Anion Gap 6 BUN 11 Creatinine 0.47 L Estimated GFR Greater than 89 Random Glucose 137 H Calcium 7.8 L B-Natriuretic Peptide TSH - Imaging Impressions Abdomen X-Ray 12/22/17 00:00 CONCLUSION: Catheter overlies left iliac crest. Bowel gas pattern is normal Chest X-Ray 12/22/17 00:00 CONCLUSION: Interstitial lung disease. Small bilateral pleural effusions. Assessment and Plan - Plan //Postoperative day one left partial nephrectomy Postoperative management as per surgical service Due to respiratory failure, have discontinued all narcotics. //Acute hypercapnic respiratory failure //Acute hypoxic respiratory failure //Suspected aspiration pneumonia //Leukocytosis -ABG reviewed with pH 7.23, pCO2 65 Chest x-ray was right middle lobe infiltrate. Bilateral pleural effusions. Check BNP. = Will start IV steroids, scheduled and as needed DuoNeb's, incentive spirometer and Acapella. Discontinue all narcotics for now. Consult pulmonology. -Discontinue IV fluids. = Patient denies any chest pain, however EKG done yesterday changed from 10 years ago. New right bundle branch block. -Repeat ABG after duonebs and IV steroids. = BNP only mildly elevated at 115. Repeat ABG with continued respiratory acidosis. Continue to minimize narcotics. Pulmonary consultation pending. Appreciate assistance. Continue duo nebs. //Intraoperative blood loss. Patient received 1 unit of PRBCs. //Hyperlipidemia. Chronic. Continue home meds //Hypertension. Blood pressure acceptable. Continue home meds. //Glaucoma. Continue home drops //Hypothyroidism. Continue home medication. Check TSH //Restless leg syndrome. Continue home meds. Discharge Planning: We will continue to follow.
--- NOTE | 2017-12-23 12:31 | MB ---
cc: Sade Kang MD DATE: 12/23/2017 REASON FOR CONSULTATION: Shortness of breath. PULMONARY CONSULTATION REFERRING PHYSICIAN: Dr. Vazquez. HISTORY OF PRESENT ILLNESS: The patient is a 77-year-old female with past medical history of hypertension, hypothyroidism, hyperlipidemia, tobacco abuse, status post elective robotic left partial nephrectomy. She had a chest x-ray on 12/22/2017, which showed small bilateral pleural effusions along with interstitial lung disease with diffuse emphysema. She quit smoking 14 years ago and used to smoke up to 2 packs per day for 15 years. She denies any use of home oxygen or any use of nebulizers at home. She is currently on 3-liters oxygen with saturation ranges between 91%-94%. She denies any chest pain, orthopnea, PND, edema of lower extremities. ABG was performed last night, which showed acute hypercapnic respiratory acidosis with a pH of 7.27, CO2 59, PaO2 of 74, bicarbonate of 26, and saturation 92% on BiPAP. She is currently off of BiPAP. The patient appears comfortable. PAST MEDICAL HISTORY: Significant for hypertension, hyperlipidemia, hypothyroidism, renal CA, osteoporosis, restless leg syndrome, glaucoma. PAST SURGICAL HISTORY: Status post left partial nephrectomy, previous , previous abdominoplasty, previous cataract extraction with lens replacement. SOCIAL HISTORY: Quit smoking 14 years ago, used to smoke up to 2 packs per day for 15 years, nondrinker. ALLERGIES: NO KNOWN DRUG ALLERGIES. FAMILY HISTORY: Noncontributory to present illness reported. CURRENT MEDICATIONS: 1. Lipitor. 2. Unasyn. 3. Solu-Medrol 4. Requip. PHYSICAL EXAMINATION: GENERAL: A 77-year-old female lying in bed in mild respiratory distress; off BiPAP. VITAL SIGNS: Temperature 97.7, pulse 102, respiratory rate of 18, blood pressure 153/68, saturation 91%-94% on 3 liters oxygen. HEENT: Atraumatic, normocephalic. Pupils are equal, round, reactive to light and accommodation. Extraocular muscles intact. Conjunctivae pink. Nonicteric sclerae. Oral mucosa within normal. NECK: Supple. No JVD. hepatomegaly. Trachea in the midline. CARDIOVASCULAR: Tachycardic. Normal S1, S2. No murmurs, rubs or gallops noted. PULMONARY: Bilateral air entry with a few coarse breath sounds at the bases. ABDOMEN: Soft, nontender, nondistended, positive bowel sounds. EXTREMITIES: No cyanosis, clubbing, edema. NEUROLOGIC: No focal sensory deficit. LABORATORY DATA: WBC 11.2, hemoglobin 11.1, hematocrit 33, platelet count 125. Sodium 143, potassium 4, chloride 108, CO2 28, BUN 11, creatinine 0.47, glucose 137. RADIOGRAPHIC STUDIES: Chest x-ray from 12/22/2017 showed small bilateral pleural effusions, left greater than the right, with interstitial lung disease and diffuse emphysema. IMPRESSION: 1. Acute hypoxemic and hypercapnic respiratory insufficiency. 2. Status post robotic left partial nephrectomy; postoperative day number 2. 3. Chronic obstructive pulmonary disease. 4. Chronic tobacco use. 5. Interstitial lung disease. 6. Mild leukocytosis. 7. Hypertension. 8. Hyperlipidemia. 9. Hypothyroidism. 10. Restless leg syndrome. RECOMMENDATIONS: 1. Wean down oxygen as tolerated and maintain sats above 92%. 2. Bronchodilators in the form of DuoNeb. In addition, we will add a Symbicort 160/4.5 two puffs b.i.d. 3. Increase Solu-Medrol; 60 mg IV every 6. 4. Check ABG now. 5. Continue with BiPAP p.r.n. for respiratory distress. 6. We will proceed with CT angiogram of the chest to rule out PE and for further evaluation of pulmonary parenchyma. 7. We will diurese with Lasix 40 mg IV x1 given positive fluid balance. IV fluid has been discontinued. 8. Continue with antibiotics in the form of Unasyn as ordered. Monitor for signs of infection, which include fever and WBC. I will obtain a sputum culture with Gram stain. 9. Continue with Requip for her restless leg syndrome. 10. Incentive spirometry. 11. Gastrointestinal and deep venous thrombosis prophylaxis per primary team. 12. Further recommendations will be based on hospital course. Thank you for this consultation and allowing us to participate in this patient's care. MD EMILIANA Davis/flavia , 12:04 PM , 12:17 PM
--- NOTE | 2017-12-23 17:12 | CT ---
EXAM DATE: 12/23/2017 4:55 PM EDT AGE/SEX: 77 years / Female INDICATIONS: Shortness of breath. CLINICAL DATA: This is the patient's initial encounter. Patient reports that signs and symptoms have been present for 1 day and indicates a pain score of 0/10. MEDICAL/SURGICAL HISTORY: Hypertension. Renal cell carcinoma. section. Breast augmentati on. RADIATION DOSE: 15.65 CTDI (mGy) COMPARISON: No prior exams available for comparison. TECHNIQUE: Volumetric scanning was performed using a multi-row detector CT scanner during bolus infu humberto of 71 ml Omnipaque 350 (iohexol) nonionic water-soluble contrast as a single exam dose. The anitra a was post processed with a variety of visualization algorithms including full volume maximum intensi ty projection and sliding thin slab reformation. Using automated exposure control and adjustment of the mA and/or kV according to patient size, radiation dose was kept as low as reasonably achievable t o obtain optimal diagnostic quality images. DICOM format image data is available electronically for review and comparison. FINDINGS: Pulmonary Arteries: No filling defect is identified through the segmental and some of the subsegmenta l level pulmonary arteries. Lungs: There is respiratory motion artifact. Lungs demonstrate moderate to severe centrilobular emph ysema. There is bilateral lower lobe compressive atelectasis and/or consolidation adjacent to the sma ll bilateral pleural effusions. No pneumothorax is present. Mediastinum: The heart and great vessels demonstrate no acute abnormality. No lymphadenopathy is vis ualized. There is coronary artery calcification and severe atherosclerotic disease of the aorta. Pleurae: There are small bilateral pleural effusions. No pleural thickening is present. Axillae: No lymphadenopathy. Musculoskeletal: No acute osseous abnormality is identified. There are degenerative changes througho ut the thoracic spine. Other: Visualized upper abdominal structures demonstrate no acute abnormality. Cutaneous air is visu alized along the right anterior abdominal wall in the inferior chest and upper abdomen. Bilateral theresa ast implants are present calcified capsules. Both have features suspicious for a rupture. CONCLUSION: 1. No PE is identified. 2. Moderate to severe emphysema with small bilateral pleural effusions and adjacent compressive atel ectasis and/or consolidation in both lower lobes. 3. Nonspecific subcutaneous air on the right of the inferior chest wall and upper abdomen. Suggest c orrelating clinically for any recent injection or laceration in this area. 4. Nonacute findings include coronary artery calcification, severe atherosclerotic disease of the ao rta, and bilateral breast implants with features suggesting rupture. Electronically signed by: Paramjit Ugalde MD 12/23/2017 5:11 PM EDT
[2017-12-23] MEDS: Budesonide-Formoterol 160/4.5 MCG 6 GM Inhaler INH SCH ×2 (18:19→21:09)
[2017-12-23] MEDS: Latanoprost 0.005% Opth Drops 2.5 ML Bottle EACH EYE SCH (18:39)
[2017-12-24] MEDS: Ampicillin/Sulbactam Inj 3 GM in Sodium Chloride 0.9% Inj 100 ML IV.SIG SCH ×3 (05:22→18:19)
[2017-12-24] MEDS: Levothyroxine 88 MCG Tablet PO SCH (05:23)
[2017-12-24] MEDS: MethylPREDNISolone Sod Succinate Inj 40 MG/ML Vial IV.PUSH SCH ×3 (05:24→18:20)
[2017-12-24] MEDS: Docusate Sodium 100 MG Capsule PO SCH ×2 (09:43→20:50)
[2017-12-24] MEDS: amLODIPine 5 MG Tablet PO SCH (09:43)
[2017-12-24] MEDS: Dorzolamide-Timolol 2/0.5% Opth Drops 10 ML Bottle EACH EYE SCH ×2 (09:44→20:49)
[2017-12-24] MEDS: Budesonide-Formoterol 160/4.5 MCG 6 GM Inhaler INH SCH ×2 (09:45→20:45)
--- NOTE | 2017-12-24 10:03 | P.PNPL ---
Subjective Interval history: Patient is sitting up in chair in NAD. Afebrile, on 5L oxygen. Feeling better, CTA chest yesterday showed no evidence of PE. Physical Exam Vital signs: Vital Signs 12/23/17 12:00 12/23/17 12:33 12/23/17 16:00 Temperature 97.6 F 97.7 F Pulse Rate 98 H 102 H 116 H Respiratory Rate 18 15 18 Blood Pressure 139/69 154/70 H Pulse Oximetry 93 L 93 L 12/23/17 19:15 12/23/17 20:16 12/23/17 23:55 Temperature 97.8 F 98.0 F Pulse Rate 111 H 97 H Respiratory Rate 17 18 Blood Pressure 154/70 H 140/63 Pulse Oximetry 95 93 L 93 L 12/24/17 04:43 12/24/17 07:22 12/24/17 08:00 Temperature 97.5 F L 97.1 F L Pulse Rate 93 H 95 H 97 H Respiratory Rate 18 16 18 Blood Pressure 148/76 H 164/79 H Pulse Oximetry 95 96 97 Intake & Output 12/23/17 12/24/17 12/24/17 18:59 06:59 18:59 Intake Total 680 / 680 680 / 680 Balance 680 / 680 680 / 680 Weight 69 kg Intake: IV 200 / 200 200 / 200 Unasyn Inj 3 GM In NS Inj 100 200 / 200 200 / 200 ML @ 200 mls/hr IV.SIG Q6HR [facility] Rx#:[id number] Oral 480 / 480 480 / 480 Other: # Voids 4 3 Date of Last Bowel Movement 12/23/17 - Constitutional no acute distress - Routine HEENT Exam Head: Present: normocephalic, atraumatic Eye: Present: EOMI, PERRL, normal accommodation, conjunctivae pink ENT: Present: mucous membranes moist - Routine Neck Exam Present: supple, full ROM, trachea midline - Routine Respiratory Exam Present: CTA bilaterally - Routine Cardiovascular Exam Present: RRR, S1, S2 - Routine Abdominal Exam Present: soft, normoactive bowel sounds - Routine Extremities Exam Present: full ROM - Routine Skin Exam Present: intact, dry - Routine Neurological Exam Present: alert, oriented X3, CN II-XII intact - Routine Psychiatric Exam Present: normal affect - Urinary Catheter Management Indwelling Urethral Catheter Cath placed during this visit: yes Reason for continuing: Hourly intake/output Insertion date: 12/21/17 Insertion time: 07:45 Assessment and Plan - Plan 1. Acute hypoxemic and hypercapnic respiratory insufficiency. 2. Status post robotic left partial nephrectomy 3. COPD 4. Tobacco use. 5. Thrombocytopenia 6. Mild leukocytosis. 7. Hypertension. 8. Hyperlipidemia. 9. Hypothyroidism. 10. Restless leg syndrome. Plan Continue to Wean down oxygen as tolerated and maintain sats > 92%. Bronchodilators(DuoNeb, Symbicort ), IS Solu-Medrol; 60 mg IV every 6. Check ABG BiPAP p.r.n. for respiratory distress. CT chest: No PE is identified. Moderate to severe emphysema with small bilateral pleural effusions and adjacent compressive atelectasis and/or consolidation in both lower lobes. Continue with antibiotics (Unasyn) Continue Requip for RLS s/p Lasix 40mg x1 yesterday GI and deep venous thrombosis prophylaxis per primary team.
[2017-12-24 10:30] LABS: ABG Base Excess 8.7 mmol/L (-2-2); ABG PCO2 48 mmHg (38-42); ABG PO2 72 mmHg (61-120)
--- NOTE | 2017-12-24 11:56 | P.PNIM ---
Subjective Interval history: Says she is breathing a little better today. Reports pain is under control. Physical Exam Vital signs: Vital Signs 12/23/17 12:00 12/23/17 12:33 12/23/17 16:00 Temperature 97.6 F 97.7 F Pulse Rate 98 H 102 H 116 H Respiratory Rate 18 15 18 Blood Pressure 139/69 154/70 H Pulse Oximetry 93 L 93 L 12/23/17 19:15 12/23/17 20:16 12/23/17 23:55 Temperature 97.8 F 98.0 F Pulse Rate 111 H 97 H Respiratory Rate 17 18 Blood Pressure 154/70 H 140/63 Pulse Oximetry 95 93 L 93 L 12/24/17 04:43 12/24/17 07:22 12/24/17 08:00 Temperature 97.5 F L 97.1 F L Pulse Rate 93 H 95 H 97 H Respiratory Rate 18 16 18 Blood Pressure 148/76 H 164/79 H Pulse Oximetry 95 96 97 Intake & Output 12/23/17 12/24/17 12/24/17 18:59 06:59 18:59 Intake Total 680 / 680 680 / 680 Balance 680 / 680 680 / 680 Weight 69 kg Intake: IV 200 / 200 200 / 200 Unasyn Inj 3 GM In NS Inj 100 200 / 200 200 / 200 ML @ 200 mls/hr IV.SIG Q6HR TICO Rx#:[id number] Oral 480 / 480 480 / 480 Other: # Voids 4 3 Date of Last Bowel Movement 12/23/17 Narrative: GENERAL: Somnolent, wakes up for exam. Up in chair. Appears comfortable. SKIN: Warm and dry. HEAD: Normocephalic. EYES: No scleral icterus. No injection or drainage. NECK: Supple, trachea midline. No JVD. CARDIOVASCULAR: Regular rate and rhythm without murmurs, gallops, or rubs. RESPIRATORY: Breath sounds equal bilaterally. No accessory muscle use. GASTROINTESTINAL: Abdomen soft, non-tender, nondistended. MUSCULOSKELETAL: No cyanosis, or edema. BACK: Nontender without obvious deformity. No CVA tenderness. - Urinary Catheter Management Indwelling Urethral Catheter Cath placed during this visit: yes Reason for continuing: Hourly intake/output Insertion date: 12/21/17 Insertion time: 07:45 Results - Labs CBC & Chem 7: 12/23/17 03:51 12/23/17 03:51 Laboratory Results - last 24 hr 12/21/17 12/24/17 06:00 10:24 Puncture Site Left radial Patient Temperature 98.6 O2 Saturation 93 ABG pH 7.45 H ABG pCO2 48 H ABG pO2 72 ABG HCO3 33 H ABG O2 Content 17.2 ABG Base Excess 8.7 H ABG Methemoglobin 1.1 Xavier Test Present Hemoglobin 13.1 Carboxyhemoglobin 1.4 O2 Delivery Device Nasal cannula Liter Flow 5.00 Critical Value No MTS Gel Crossmatch See Detail - Imaging Impressions Chest CTA 12/23/17 00:00 CONCLUSION: 1. No PE is identified. 2. Moderate to severe emphysema with small bilateral pleural effusions and adjacent compressive atelectasis and/or consolidation in both lower lobes. 3. Nonspecific subcutaneous air on the right of the inferior chest wall and upper abdomen. Suggest correlating clinically for any recent injection or laceration in this area. 4. Nonacute findings include coronary artery calcification, severe atherosclerotic disease of the aorta, and bilateral breast implants with features suggesting rupture. Assessment and Plan - Plan //Postoperative day one left partial nephrectomy Postoperative management as per surgical service Due to respiratory failure, have discontinued all narcotics. //Acute hypercapnic respiratory failure //Acute hypoxic respiratory failure //Suspected aspiration pneumonia //Leukocytosis -ABG reviewed with pH 7.23, pCO2 65 Chest x-ray was right middle lobe infiltrate. Bilateral pleural effusions. Check BNP. = Will start IV steroids, scheduled and as needed DuoNeb's, incentive spirometer and Acapella. Discontinue all narcotics for now. Consult pulmonology. -Discontinue IV fluids. = Patient denies any chest pain, however EKG done yesterday changed from 10 years ago. New right bundle branch block. -Repeat ABG after duonebs and IV steroids. = BNP only mildly elevated at 115. Repeat ABG with continued respiratory acidosis. Continue to minimize narcotics. Pulmonary consultation pending. Appreciate assistance. Continue duo nebs. = ABG reviewed. PH is 7.45, PCO2 48, bicarb 33. Appreciate pulmonology assistance. Continue current management. Continue to monitor. //Intraoperative blood loss. Patient received 1 unit of PRBCs. = Hemoglobin stable as of yesterday at 11. //Hyperlipidemia. Chronic. Continue home meds //Hypertension. Blood pressure acceptable. Continue home meds. //Glaucoma. Continue home drops //Hypothyroidism. Continue home medication. Check TSH //Restless leg syndrome. Continue home meds. Discharge Planning: We will continue to follow.
[2017-12-24] MEDS: Latanoprost 0.005% Opth Drops 2.5 ML Bottle EACH EYE SCH (18:22)
[2017-12-25] MEDS: MethylPREDNISolone Sod Succinate Inj 40 MG/ML Vial IV.PUSH SCH ×5 (00:06→23:33)
[2017-12-25] MEDS: Ampicillin/Sulbactam Inj 3 GM in Sodium Chloride 0.9% Inj 100 ML IV.SIG SCH ×5 (00:07→23:34)
[2017-12-25] MEDS: Levothyroxine 88 MCG Tablet PO SCH (05:08)
[2017-12-25 06:10] LABS: Albumin 2.8 g/dL (3.4-5.0); Anion Gap 8 meq/L (5-15); Blood Urea Nitrogen 21 mg/dL (7-18); Calcium 8.4 mg/dL (8.5-10.1); Carbon Dioxide 30.1 meq/L (21.0-32.0); Chloride 104 meq/L (98-107); Glomerular Filtration Rate Greater Than 89 mL/min (>89); Glucose,Random 143 mg/dL (74-106); Magnesium 2.1 mg/dL (1.5-2.5); Phosphorus 2.6 mg/dL (2.5-4.9); Potassium 3.1 meq/L (3.5-5.1); Sodium 142 meq/L (136-145)
[2017-12-25 06:26] LABS: Baso % (Auto) 0.1 % (0.0-2.0); Eos % (Auto) 0.1 % (0.0-4.0); Hematocrit 37.4 % (35.0-46.0); Hemoglobin 12.2 gm/dL (11.6-15.3); Lymph # (Auto) 0.8 th/mm3 (1.0-4.8); Lymph % (Auto) 9.1 % (9.0-44.0); Mean Corpuscular HGB Conc 32.7 % (32.0-36.0); Mean Corpuscular Hemoglobin 31.1 pg (27.0-34.0); Mean Corpuscular Volume 95.1 fL (80.0-100.0); Mean Platelet Volume 10.3 fL (7.0-11.0); Mono # (Auto) 0.6 th/mm3 (0.0-0.9); Mono % (Auto) 6.8 % (0.0-8.0); Neut # (Auto) 7.6 th/mm3 (1.8-7.7); Neut % (Auto) 83.9 % (16.0-70.0); Platelet Count 157 th/mm3 (150-450); Red Blood Count 3.93 mil/mm3 (4.00-5.30); White Blood Count 9.1 th/mm3 (4.0-11.0)
[2017-12-25] MEDS: amLODIPine 5 MG Tablet PO SCH (08:40)
[2017-12-25] MEDS: Dorzolamide-Timolol 2/0.5% Opth Drops 10 ML Bottle EACH EYE SCH ×2 (08:40→21:58)
[2017-12-25] MEDS: Docusate Sodium 100 MG Capsule PO SCH ×2 (08:41→21:58)
[2017-12-25] MEDS: Budesonide-Formoterol 160/4.5 MCG 6 GM Inhaler INH SCH ×2 (08:41→21:58)
--- NOTE | 2017-12-25 08:46 | P.PN ---
Subjective Interval history: This is a pleasant 77 y/o female with Hypothyroidism, Hypertension, Hyperlipidemia, status post elective Robotic left partial nephrectomy, status post Cardiac workup negative, Stable in her bedroom , discussed with nurse. Seen in her Bedroom, stable going to the restroom without difficulty, encourage ambulation. Physical Exam Vital signs: Vital Signs 12/24/17 12:00 12/24/17 14:19 12/24/17 16:00 Temperature 97.3 F L 97.5 F L Pulse Rate 96 H 98 H 103 H Respiratory Rate 17 16 16 Blood Pressure 138/74 130/64 Pulse Oximetry 94 L 97 12/24/17 19:56 12/24/17 20:00 12/25/17 00:00 Temperature 98.0 F 98.6 F Pulse Rate 94 H 115 H 91 H Respiratory Rate 18 20 18 Blood Pressure 149/71 H 141/68 H Pulse Oximetry 90 L 94 L 12/25/17 07:32 12/25/17 08:00 Temperature 97.2 F L Pulse Rate 93 H 91 H Respiratory Rate 16 17 Blood Pressure 169/71 H Pulse Oximetry 94 L 94 L Intake & Output 12/24/17 12/25/17 12/25/17 18:59 06:59 18:59 Intake Total 200 / 200 200 / 200 Balance 200 / 200 200 / 200 Weight 64.3 kg Intake: IV 200 / 200 200 / 200 Unasyn Inj 3 GM In NS Inj 100 200 / 200 200 / 200 ML @ 200 mls/hr IV.SIG Q6HR TICO Rx#:[id number] Other: # Voids 2 Narrative: GENERAL: Alert and oriented, in bed, left leg cramps. SKIN: Warm and dry. HEAD: Normocephalic. EYES: No scleral icterus. No injection or drainage. NECK: Supple, trachea midline. No JVD. CARDIOVASCULAR: Regular rate and rhythm without murmurs, gallops, or rubs. RESPIRATORY: Breath sounds equal bilaterally. No accessory muscle use. GASTROINTESTINAL: Abdomen soft, non-tender, nondistended. dressed surgical wounds. MUSCULOSKELETAL: No cyanosis, or edema. BACK: Nontender without obvious deformity. No CVA tenderness. - Urinary Catheter Management Indwelling Urethral Catheter Cath placed during this visit: yes Reason for continuing: Hourly intake/output Insertion date: 12/21/17 Insertion time: 07:45 Results - Labs CBC & Chem 7: 12/25/17 03:59 12/25/17 03:59 Laboratory Results - last 24 hr 12/24/17 12/25/17 12/25/17 10:24 03:59 03:59 WBC 9.1 RBC 3.93 L Hgb 12.2 Hct 37.4 MCV 95.1 MCH 31.1 MCHC 32.7 RDW 14.0 Plt Count 157 MPV 10.3 Neut % (Auto) 83.9 H Lymph % (Auto) 9.1 Clinton % (Auto) 6.8 Eos % (Auto) 0.1 Baso % (Auto) 0.1 Neut # (Auto) 7.6 Lymph # (Auto) 0.8 L Clinton # (Auto) 0.6 Eos # (Auto) 0.0 Baso # (Auto) 0.0 WBC Differential . Differential Comment Auto diff final Puncture Site Left radial Patient Temperature 98.6 O2 Saturation 93 ABG pH 7.45 H ABG pCO2 48 H ABG pO2 72 ABG HCO3 33 H ABG O2 Content 17.2 ABG Base Excess 8.7 H ABG Methemoglobin 1.1 Xavier Test Present Hemoglobin 13.1 Carboxyhemoglobin 1.4 O2 Delivery Device Nasal cannula Liter Flow 5.00 Critical Value No Sodium 142 Potassium 3.1 L Chloride 104 Carbon Dioxide 30.1 Anion Gap 8 BUN 21 H Creatinine 0.60 Estimated GFR Greater than 89 Random Glucose 143 H Calcium 8.4 L Phosphorus 2.6 Magnesium 2.1 Albumin 2.8 L - Imaging Chest CTA 12/23/17 00:00 CONCLUSION: 1. No PE is identified. 2. Moderate to severe emphysema with small bilateral pleural effusions and adjacent compressive atelectasis and/or consolidation in both lower lobes. 3. Nonspecific subcutaneous air on the right of the inferior chest wall and upper abdomen. Suggest correlating clinically for any recent injection or laceration in this area. 4. Nonacute findings include coronary artery calcification, severe atherosclerotic disease of the aorta, and bilateral breast implants with features suggesting rupture. Assessment and Plan - Plan //Postoperative day two left partial nephrectomy Postoperative management as per surgical service Due to respiratory failure, have discontinued all narcotics. //Acute hypercapnic respiratory failure //Acute hypoxic respiratory failure //Suspected aspiration pneumonia //Leukocytosis -ABG reviewed with pH 7.23, pCO2 65 Chest x-ray was right middle lobe infiltrate. Bilateral pleural effusions. BNP 115 = Will start IV steroids, scheduled and as needed DuoNeb's, incentive spirometer and Acapella. Discontinue all narcotics for now. Consult pulmonology. -Discontinued IV fluids. patient on regular diet and renal function stable. = Patient denies any chest pain, however EKG done yesterday changed from 10 years ago. New right bundle branch block. -Repeat ABG after duonebs and IV steroids. = BNP only mildly elevated at 115. Repeat ABG with continued respiratory acidosis. Continue to minimize narcotics. Pulmonary consultation pending. Appreciate assistance. Continue duo nebs. = ABG reviewed. PH is 7.45, PCO2 48, bicarb 33. Appreciate pulmonology assistance. Continue current management. Continue to monitor. //Intraoperative blood loss. Patient received 1 unit of PRBCs. = Hemoglobin 12.2 //Hyperlipidemia. Chronic. Continue home meds //Hypertension. Blood pressure acceptable. Continue home meds. //Glaucoma. Continue home drops //Hypothyroidism. Continue home medication. Check TSH //Restless leg syndrome. Continue home meds. //Hypokalemia 3.1 giving by mouth replacement with 80 meq of Potassium chloride on divided dosages, will follow new level at 13 hours today. Code Status: Full Code. Discussed Condition With: patient and nurse. Discharge Planning: as per Attending physician.
--- NOTE | 2017-12-25 10:23 | P.PNPL ---
Subjective Interval history: Patient is lying in bed in NAD Physical Exam Vital signs: Vital Signs 12/24/17 12:00 12/24/17 14:19 12/24/17 16:00 Temperature 97.3 F L 97.5 F L Pulse Rate 96 H 98 H 103 H Respiratory Rate 17 16 16 Blood Pressure 138/74 130/64 Pulse Oximetry 94 L 97 12/24/17 19:56 12/24/17 20:00 12/25/17 00:00 Temperature 98.0 F 98.6 F Pulse Rate 94 H 115 H 91 H Respiratory Rate 18 20 18 Blood Pressure 149/71 H 141/68 H Pulse Oximetry 90 L 94 L 12/25/17 07:32 12/25/17 08:00 Temperature 97.2 F L Pulse Rate 93 H 91 H Respiratory Rate 16 17 Blood Pressure 169/71 H Pulse Oximetry 94 L 94 L Intake & Output 12/24/17 12/25/17 12/25/17 18:59 06:59 18:59 Intake Total 200 / 200 200 / 200 Balance 200 / 200 200 / 200 Weight 64.3 kg Intake: IV 200 / 200 200 / 200 Unasyn Inj 3 GM In NS Inj 100 200 / 200 200 / 200 ML @ 200 mls/hr IV.SIG Q6HR TICO Rx#:[id number] Other: # Voids 2 - Constitutional no acute distress - Routine HEENT Exam Head: Present: normocephalic, atraumatic Eye: Present: EOMI, PERRL, normal accommodation, conjunctivae pink ENT: Present: mucous membranes moist - Routine Neck Exam Present: supple, full ROM, trachea midline - Routine Respiratory Exam Present: CTA bilaterally - Routine Cardiovascular Exam Present: RRR, S1, S2 - Routine Abdominal Exam Present: soft, normoactive bowel sounds - Routine Skin Exam Present: intact, dry - Routine Neurological Exam Present: alert, oriented X3, CN II-XII intact - Routine Psychiatric Exam Present: normal affect - Urinary Catheter Management Indwelling Urethral Catheter Cath placed during this visit: yes Reason for continuing: Hourly intake/output Insertion date: 12/21/17 Insertion time: 07:45 Assessment and Plan - Plan 1. Acute hypoxemic and hypercapnic respiratory insufficiency. 2. Status post robotic left partial nephrectomy 3. COPD 4. Tobacco use. 5. Thrombocytopenia 6. Mild leukocytosis. 7. Hypertension. 8. Hyperlipidemia. 9. Hypothyroidism. 10. Restless leg syndrome. Plan Continue with oxygen and maintain sats > 92%. Bronchodilators(DuoNeb, Symbicort ), IS Solu-Medrol; 60 mg IV every 6. BiPAP p.r.n. for respiratory distress. ABG yesterday improvements in her resp acidosis CTA chest: No PE is identified. Moderate to severe emphysema with small bilateral pleural effusions and adjacent compressive atelectasis and/or consolidation in both lower lobes. Continue with antibiotics (Unasyn) Continue Requip for RLS Continue treatment plan
[2017-12-25] MEDS: Latanoprost 0.005% Opth Drops 2.5 ML Bottle EACH EYE SCH (18:42)
[2017-12-26] MEDS: Levothyroxine 88 MCG Tablet PO SCH (05:20)
[2017-12-26] MEDS: MethylPREDNISolone Sod Succinate Inj 40 MG/ML Vial IV.PUSH SCH ×3 (05:20→20:40)
[2017-12-26] MEDS: Ampicillin/Sulbactam Inj 3 GM in Sodium Chloride 0.9% Inj 100 ML IV.SIG SCH ×3 (05:20→17:13)
[2017-12-26 06:12] LABS: Hematocrit 37.5 % (35.0-46.0); Hemoglobin 12.6 gm/dL (11.6-15.3); Mean Corpuscular HGB Conc 33.6 % (32.0-36.0); Mean Corpuscular Hemoglobin 31.3 pg (27.0-34.0); Mean Platelet Volume 9.9 fL (7.0-11.0); Platelet Count 197 th/mm3 (150-450); Red Blood Count 4.03 mil/mm3 (4.00-5.30); Red Cell Distribution Width 13.4 % (11.6-17.2); White Blood Count 11.1 th/mm3 (4.0-11.0)
[2017-12-26 06:32] LABS: Anion Gap 11 meq/L (5-15); Blood Urea Nitrogen 21 mg/dL (7-18); Calcium 8.3 mg/dL (8.5-10.1); Carbon Dioxide 29.2 meq/L (21.0-32.0); Chloride 104 meq/L (98-107); Glomerular Filtration Rate Greater Than 89 mL/min (>89); Glucose,Random 145 mg/dL (74-106); Magnesium 2.2 mg/dL (1.5-2.5); Potassium 3.6 meq/L (3.5-5.1); Sodium 144 meq/L (136-145)
[2017-12-26] MEDS: Docusate Sodium 100 MG Capsule PO SCH ×2 (08:18→20:39)
[2017-12-26] MEDS: Budesonide-Formoterol 160/4.5 MCG 6 GM Inhaler INH SCH ×2 (08:19→20:40)
[2017-12-26] MEDS: amLODIPine 5 MG Tablet PO SCH (08:19)
[2017-12-26] MEDS: Dorzolamide-Timolol 2/0.5% Opth Drops 10 ML Bottle EACH EYE SCH ×2 (08:20→20:40)
--- NOTE | 2017-12-26 10:59 | P.PN ---
Subjective Interval history: This is a pleasant 77 y/o female with Hypothyroidism, Hypertension, Hyperlipidemia, status post elective Robotic left partial nephrectomy, status post Cardiac workup negative, Stable in her bedroom , discussed with nurse. Seen in her Bedroom, stable going to the restroom without difficulty, encourage ambulation. 12/26: Stable in her bedroom discussed with nurse Miss Marroquin, Potassium level 3.6 will replace, also her oxygen saturation over 92% at 5L/min. Oxygen by NC, no distress, no nausea, vomit or diarrhea. Physical Exam Vital signs: Vital Signs 12/25/17 11:59 12/25/17 16:00 12/25/17 20:00 Temperature 97.9 F 97.3 F L 97.9 F Pulse Rate 86 86 90 Respiratory Rate 16 17 18 Blood Pressure 132/64 160/77 H 172/76 H Pulse Oximetry 96 96 96 12/26/17 00:00 12/26/17 08:00 Temperature 97.8 F 97.6 F Pulse Rate 80 78 Respiratory Rate 18 14 Blood Pressure 148/68 H 150/69 H Pulse Oximetry 94 L 97 Intake & Output 12/25/17 12/26/17 12/26/17 18:59 06:59 18:59 Intake Total 100 / 100 200 / 200 Balance 100 / 100 200 / 200 Weight 63.8 kg Intake: IV 100 / 100 200 / 200 Unasyn Inj 3 GM In NS Inj 100 100 / 100 200 / 200 ML @ 200 mls/hr IV.SIG Q6HR TICO Rx#:[id number] Other: # Voids 3 Date of Last Bowel Movement 12/26/17 Narrative: GENERAL: Alert and oriented, sitting position, no complaint, no distress. SKIN: Warm and dry. HEAD: Normocephalic. EYES: No scleral icterus. No injection or drainage. NECK: Supple, trachea midline. No JVD. CARDIOVASCULAR: Regular rate and rhythm without murmurs, gallops, or rubs. RESPIRATORY: Breath sounds equal bilaterally. No accessory muscle use. GASTROINTESTINAL: Abdomen soft, non-tender, nondistended. dressed surgical wounds. MUSCULOSKELETAL: No cyanosis, or edema. BACK: Nontender without obvious deformity. No CVA tenderness. - Urinary Catheter Management Indwelling Urethral Catheter Cath placed during this visit: yes Reason for continuing: Hourly intake/output Insertion date: 12/21/17 Insertion time: 07:45 Results - Labs CBC & Chem 7: 12/26/17 04:20 12/26/17 04:20 Laboratory Results - last 24 hr 12/25/17 12/26/17 12/26/17 15:17 04:20 04:20 WBC 11.1 H RBC 4.03 Hgb 12.6 Hct 37.5 MCV 93.0 MCH 31.3 MCHC 33.6 RDW 13.4 Plt Count 197 MPV 9.9 Sodium 144 Potassium 3.5 3.6 Chloride 104 Carbon Dioxide 29.2 Anion Gap 11 BUN 21 H Creatinine 0.54 Estimated GFR Greater than 89 Random Glucose 145 H Calcium 8.3 L Magnesium 2.2 Assessment and Plan - Plan //Postoperative left partial nephrectomy Postoperative management as per surgical service Due to respiratory failure, have discontinued all narcotics. //Acute hypercapnic respiratory failure //Acute hypoxic respiratory failure //Suspected aspiration pneumonia //Leukocytosis -ABG reviewed with pH 7.23, pCO2 65 Chest x-ray was right middle lobe infiltrate. Bilateral pleural effusions. BNP 115 = continue on Steroids IV, Bronchodilator Mucolytic incentive spirometry, continue Diet. = Patient denies any chest pain, however EKG done yesterday changed from 10 years ago. New right bundle branch block. = BNP only mildly elevated at 115. continue Unasyn. = ABG reviewed. PH is 7.45, PCO2 48, bicarb 33. Appreciate pulmonology assistance. Continue current management. Continue to monitor. //Intraoperative blood loss. Patient received 1 unit of PRBCs. = Hemoglobin 12.2 //Hyperlipidemia. Chronic. Continue home meds //Hypertension. Blood pressure acceptable. Continue home meds. //Glaucoma. Continue home drops //Hypothyroidism. Continue home medication. Check TSH //Restless leg syndrome. Continue home meds. //Hypokalemia 3.6 replaced today with 40 meq of Potassium chloride. Code Status: Full code. Discussed Condition With: patient and Nurse Miss Marroquin Discharge Planning: as per Attending physician.
--- NOTE | 2017-12-26 13:01 | P.PN ---
Subjective Interval history: Alert and sitting up. On O2 3 L. No SOB at rest. C/O abdominal pains. Physical Exam Vital signs: Vital Signs 12/25/17 16:00 12/25/17 20:00 12/26/17 00:00 Temperature 97.3 F L 97.9 F 97.8 F Pulse Rate 86 90 80 Respiratory Rate 17 18 18 Blood Pressure 160/77 H 172/76 H 148/68 H Pulse Oximetry 96 96 94 L 12/26/17 08:00 Temperature 97.6 F Pulse Rate 78 Respiratory Rate 14 Blood Pressure 150/69 H Pulse Oximetry 97 Intake & Output 12/25/17 12/26/17 12/26/17 18:59 06:59 18:59 Intake Total 100 / 100 200 / 200 100 / 100 Balance 100 / 100 200 / 200 100 / 100 Weight 63.8 kg Intake: IV 100 / 100 200 / 200 100 / 100 Unasyn Inj 3 GM In NS Inj 100 100 / 100 200 / 200 100 / 100 ML @ 200 mls/hr IV.SIG Q6HR TICO Rx#:[id number] Other: # Voids 3 Date of Last Bowel Movement 12/26/17 Narrative: GENERAL: Alert and oriented, elderly W/F in no distress. SKIN: Warm and dry. HEAD: Normocephalic. EYES: No scleral icterus. No injection or drainage. NECK: Supple, trachea midline. No JVD. CARDIOVASCULAR: Regular rate and rhythm without murmurs, gallops, or rubs. RESPIRATORY: Breath sounds equal bilaterally.Occ Wheeze in upper chest. No accessory muscle use. GASTROINTESTINAL: Abdomen soft, Mild tenderness in LLQ , nondistended. dressed surgical wounds. MUSCULOSKELETAL: No cyanosis, or edema. BACK: Nontender without obvious deformity. No CVA tenderness.Neuro with no deficits. - Urinary Catheter Management Indwelling Urethral Catheter Cath placed during this visit: yes Reason for continuing: Hourly intake/output Insertion date: 12/21/17 Insertion time: 07:45 Results - Labs CBC & Chem 7: 12/26/17 04:20 12/26/17 04:20 Laboratory Results - last 24 hr 12/25/17 12/26/17 12/26/17 15:17 04:20 04:20 WBC 11.1 H RBC 4.03 Hgb 12.6 Hct 37.5 MCV 93.0 MCH 31.3 MCHC 33.6 RDW 13.4 Plt Count 197 MPV 9.9 Sodium 144 Potassium 3.5 3.6 Chloride 104 Carbon Dioxide 29.2 Anion Gap 11 BUN 21 H Creatinine 0.54 Estimated GFR Greater than 89 Random Glucose 145 H Calcium 8.3 L Magnesium 2.2 Assessment and Plan - Plan 1. Acute hypoxemic and hypercapnic respiratory insufficiency Resolving. 2. Status post robotic left partial nephrectomy 3. COPD 4. Tobacco use. 5. Thrombocytopenia 6. Mild leukocytosis. 7. Hypertension. 8. Hyperlipidemia. 9. Hypothyroidism. 10. Restless leg syndrome. Plan Continue with oxygen at 2 L N/C Bronchodilators(DuoNeb, nebs QID Taper Solu-Medrol; 40 mg IV every8. BiPAP p.r.n. for respiratory distress. Chest XRay and PFT . CTA chest: No PE is identified. Moderate to severe emphysema with small bilateral pleural effusions and adjacent compressive atelectasis and/or consolidation in both lower lobes. Continue with antibiotics (Unasyn) Continue Requip for RLS Continue IS at bedside q2h
[2017-12-26] MEDS: Latanoprost 0.005% Opth Drops 2.5 ML Bottle EACH EYE SCH (17:13)
--- NOTE | 2017-12-26 17:57 | P.PNURO ---
Subjective Patient symptoms today: Denies abdominal pain. Having BMs. tolerating regular diet. Denies CP. Breathing improved. Ambulating. voiding on own. Objective Vital Signs: Vital Signs 12/25/17 20:00 12/26/17 00:00 12/26/17 08:00 Temperature 97.9 F 97.8 F 97.6 F Pulse Rate 90 80 78 Respiratory Rate 18 18 14 Blood Pressure 172/76 H 148/68 H 150/69 H Pulse Oximetry 96 94 L 97 12/26/17 12:00 12/26/17 13:42 Temperature 97.2 F L Pulse Rate 72 75 Respiratory Rate 18 16 Blood Pressure 140/64 Pulse Oximetry 98 98 Intake & Output 12/25/17 12/26/17 12/26/17 18:59 06:59 18:59 Intake Total 100 / 100 200 / 200 100 / 100 Balance 100 / 100 200 / 200 100 / 100 Weight 63.8 kg Intake: IV 100 / 100 200 / 200 100 / 100 Unasyn Inj 3 GM In NS Inj 100 100 / 100 200 / 200 100 / 100 ML @ 200 mls/hr IV.SIG Q6HR AYESHA Rx#:[id number] Other: # Voids 3 Date of Last Bowel Movement 12/26/17 Result Diagrams: 12/26/17 04:20 12/26/17 04:20 Medications and IVs: Active Medications Generic Name Dose Route Start Last Admin Trade Name Freq PRN Reason Stop Dose Admin Albuterol 1 ampul 12/22/17 20:00 12/26/17 13:41 Duoneb Neb (Ayesha) NEB 1 ampul Q6HR WHILE AWAKE NEB AYESHA Administration Albuterol 1 ampul 12/22/17 16:09 12/22/17 17:51 Duoneb Neb (Prn) NEB 1 ampul Q4HR NEB PRN Administration SHORTNESS OF BREATH/WHEEZING Amlodipine Besylate 5 mg 12/22/17 09:00 12/26/17 08:19 Norvasc PO 5 mg DAILY AYESHA Administration Atorvastatin Calcium 20 mg 12/21/17 21:00 12/25/17 21:57 Lipitor PO 20 mg HS AYESHA Administration Budesonide/Formoterol Fumarate 2 puff 12/23/17 14:00 12/26/17 08:19 Symbicort 160/4.5 Mcg Inh INH 2 puff BID AYESHA Administration Docusate Sodium 100 mg 12/21/17 21:00 12/26/17 08:18 Colace PO Not Given BID AYESHA Dorzolamide/Timolol 1 drop 12/21/17 21:00 12/26/17 08:20 Cosopt 2/0.5% Opth Drops EACH EYE 1 drop BID AYESHA Administration Ampicillin Sodium/Sulbactam 100 mls @ 200 mls/hr 12/22/17 19:00 12/26/17 17: 13 Sodium 3 gm/ Sodium Chloride IV.SIG 200 mls/hr Q6HR AYESHA Administration Latanoprost 1 drop 12/21/17 18:00 12/26/17 17:13 Xalatan 0.005% Opth Drops EACH EYE 1 drop QPM AYESHA Administration Levothyroxine Sodium 88 mcg 12/22/17 06:00 12/26/17 05:20 Synthroid PO 88 mcg DAILY@0600 AYESHA Administration Methylprednisolone Sodium Succinate 40 mg 12/26/17 20:00 Solumedrol Inj IV.PUSH Q8H AYESHA Metoclopramide HCl 5 mg 12/22/17 14:00 12/26/17 13:08 Reglan Inj IV.PUSH 5 mg Q8H AYESHA Administration Protocol Ondansetron HCl 4 mg 12/21/17 10:59 12/22/17 08:48 Zofran Inj IV.PUSH 4 mg Q6H PRN Administration NAUSEA OR VOMITING Ropinirole HCl 0.25 mg 12/21/17 11:03 12/24/17 20:47 Requip PO 0.25 mg TID PRN Administration Restless Leg(S) Objective Remarks: NAD. A/O x 3 CTAB RRR abd soft, minimal distention, NT. Inc c/d/i. Ext NT. no edema. Assessment and Plan - Plan POD #5 s/p Robotic Left Partial Nephrectomy -From surgical standpoint, she is doing well. -Ok to d/c home when cleared by Pulmonology. -ambulate, IS. -home O2 eval -Discussed pathology results with her and her . -Appreciate all other help from other services.
--- NOTE | 2017-12-26 17:58 | P.DCO ---
- Diagnosis (1) COPD (chronic obstructive pulmonary disease) - Home Health Nursing Order: Oxygen administration education - Case Management Consult Yes - Certification I have seen patient Saira Dumont on 12/26/17. My clinical findings support the need for the requested home health care services because: Patient has SOB, Deconditioned with increased weakness I certify that my clinical findings support that this patient is homebound because: Hx COPD - exertion dyspnea/weakness (1) COPD (chronic obstructive pulmonary disease) Qualifiers: COPD type: COPD with acute exacerbation Qualified Code(s): J44.1 - Chronic obstructive pulmonary disease with (acute) exacerbation
[2017-12-27] MEDS: Ampicillin/Sulbactam Inj 3 GM in Sodium Chloride 0.9% Inj 100 ML IV.SIG SCH ×4 (00:55→18:14)
[2017-12-27] MEDS: MethylPREDNISolone Sod Succinate Inj 40 MG/ML Vial IV.PUSH SCH ×2 (04:19→13:12)
[2017-12-27] MEDS: Levothyroxine 88 MCG Tablet PO SCH (05:56)
[2017-12-27] MEDS: amLODIPine 5 MG Tablet PO SCH (09:33)
[2017-12-27] MEDS: Dorzolamide-Timolol 2/0.5% Opth Drops 10 ML Bottle EACH EYE SCH ×2 (09:34→21:04)
[2017-12-27] MEDS: Docusate Sodium 100 MG Capsule PO SCH ×2 (09:34→21:04)
[2017-12-27] MEDS: Budesonide-Formoterol 160/4.5 MCG 6 GM Inhaler INH SCH ×2 (09:34→21:04)
--- NOTE | 2017-12-27 11:07 | P.PN ---
Subjective Interval history: This is a pleasant 77 y/o female with Hypothyroidism, Hypertension, Hyperlipidemia, status post elective Robotic left partial nephrectomy, status post Cardiac workup negative, Stable in her bedroom , discussed with nurse. Seen in her Bedroom, stable going to the restroom without difficulty, encourage ambulation. 12/26: Stable in her bedroom discussed with nurse Miss Marroquin, Potassium level 3.6 will replace, also her oxygen saturation over 92% at 5L/min. Oxygen by NC, no distress. 12/27: Seen in her bedroom stable already recommended by her Attending physician for discharge depend of records management specialist for discharge. no nausea, vomit or diarrhea. Physical Exam Vital signs: Vital Signs 12/26/17 12:00 12/26/17 13:42 12/26/17 16:00 Temperature 97.2 F L 97.3 F L Pulse Rate 72 75 80 Respiratory Rate 18 16 18 Blood Pressure 140/64 143/66 H Pulse Oximetry 98 98 96 12/26/17 20:00 12/27/17 00:00 12/27/17 08:00 Temperature 97.9 F 97.7 F 97.6 F Pulse Rate 86 79 79 Respiratory Rate 17 18 17 Blood Pressure 154/71 H 132/62 153/74 H Pulse Oximetry 97 94 L 96 Intake & Output 12/26/17 12/27/17 12/27/17 18:59 06:59 18:59 Intake Total 1000 / 1000 560 / 560 Balance 1000 / 1000 560 / 560 Weight 64 kg Intake: IV 200 / 200 200 / 200 Unasyn Inj 3 GM In NS Inj 100 200 / 200 200 / 200 ML @ 200 mls/hr IV.SIG Q6HR TICO Rx#:[id number] Oral 800 / 800 360 / 360 Other: # Voids 6 3 Date of Last Bowel Movement 12/26/17 # Bowel Movements 3 2 Narrative: GENERAL: Alert and oriented, elderly W/F in no distress. SKIN: Warm and dry. HEAD: Normocephalic. EYES: No scleral icterus. No injection or drainage. NECK: Supple, trachea midline. No JVD. CARDIOVASCULAR: Regular rate and rhythm without murmurs, gallops, or rubs. RESPIRATORY: Breath sounds equal bilaterally.Occ Wheeze in upper chest. No accessory muscle use. GASTROINTESTINAL: Abdomen soft, Mild tenderness in LLQ , nondistended. dressed surgical wounds. MUSCULOSKELETAL: No cyanosis, or edema. BACK: Nontender without obvious deformity. No CVA tenderness.Neuro with no deficits. - Urinary Catheter Management Indwelling Urethral Catheter Cath placed during this visit: yes Reason for continuing: Hourly intake/output Insertion date: 12/21/17 Insertion time: 07:45 Results - Labs CBC & Chem 7: 12/26/17 04:20 12/26/17 04:20 Assessment and Plan - Plan //Postoperative left partial nephrectomy Postoperative management as per surgical service Due to respiratory failure, have discontinued all narcotics. //Acute hypercapnic respiratory failure //Acute hypoxic respiratory failure //Suspected aspiration pneumonia //Leukocytosis -ABG reviewed with pH 7.23, pCO2 65 Chest x-ray was right middle lobe infiltrate. Bilateral pleural effusions. BNP 115 = continue on Steroids IV, Bronchodilator Mucolytic incentive spirometry, continue Diet. = Patient denies any chest pain, however EKG done yesterday changed from 10 years ago. New right bundle branch block. = BNP only mildly elevated at 115. continue Unasyn. = ABG reviewed. PH is 7.45, PCO2 48, bicarb 33. Appreciate pulmonology assistance. Continue current management. Continue to monitor. //Intraoperative blood loss. Patient received 1 unit of PRBCs. = Hemoglobin 12.2 //Hyperlipidemia. Chronic. Continue home meds //Hypertension. Blood pressure acceptable. Continue home meds. //Glaucoma. Continue home drops //Hypothyroidism. Continue home medication. Check TSH //Restless leg syndrome. Continue home meds. //Hypokalemia 3.6 replaced today with 40 meq of Potassium chloride. Code Status: Full code. Discussed Condition With: patient, Nurse and Director Of Financial Reporting. Discharge Planning: as per Attending physician.
--- NOTE | 2017-12-27 13:41 | P.PNURO ---
Subjective Patient symptoms today: Pt is doing well from Urology stand point. no pain, no hematuria, no N/V. Voids ok. has BM. Tolerates diet well. Objective Vital Signs: Vital Signs 12/26/17 13:42 12/26/17 16:00 12/26/17 20:00 Temperature 97.3 F L 97.9 F Pulse Rate 75 80 86 Respiratory Rate 16 18 17 Blood Pressure 143/66 H 154/71 H Pulse Oximetry 98 96 97 12/27/17 00:00 12/27/17 08:00 12/27/17 12:00 Temperature 97.7 F 97.6 F 97.9 F Pulse Rate 79 79 82 Respiratory Rate 18 17 18 Blood Pressure 132/62 153/74 H 134/72 Pulse Oximetry 94 L 96 98 Intake & Output 12/26/17 12/27/17 12/27/17 18:59 06:59 18:59 Intake Total 1000 / 1000 560 / 560 Balance 1000 / 1000 560 / 560 Weight 64 kg Intake: IV 200 / 200 200 / 200 Unasyn Inj 3 GM In NS Inj 100 200 / 200 200 / 200 ML @ 200 mls/hr IV.SIG Q6HR TICO Rx#:[id number] Oral 800 / 800 360 / 360 Other: # Voids 6 3 Date of Last Bowel Movement 12/26/17 12/27/17 # Bowel Movements 3 2 Result Diagrams: 12/26/17 04:20 12/26/17 04:20 Medications and IVs: Active Medications Generic Name Dose Route Start Last Admin Trade Name Freq PRN Reason Stop Dose Admin Albuterol 1 ampul 12/22/17 16:09 12/22/17 17:51 Duoneb Neb (Prn) NEB 1 ampul Q4HR NEB PRN Administration SHORTNESS OF BREATH/WHEEZING Amlodipine Besylate 5 mg 12/22/17 09:00 12/27/17 09:33 Norvasc PO 5 mg DAILY TICO Administration Atorvastatin Calcium 20 mg 12/21/17 21:00 12/26/17 20:39 Lipitor PO 20 mg HS TICO Administration Budesonide/Formoterol Fumarate 2 puff 12/23/17 14:00 12/27/17 09:34 Symbicort 160/4.5 Mcg Inh INH 2 puff BID TICO Administration Docusate Sodium 100 mg 12/21/17 21:00 12/27/17 09:34 Colace PO Not Given BID TICO Dorzolamide/Timolol 1 drop 12/21/17 21:00 12/27/17 09:34 Cosopt 2/0.5% Opth Drops EACH EYE 1 drop BID TICO Administration Ampicillin Sodium/Sulbactam 100 mls @ 200 mls/hr 12/22/17 19:00 12/27/17 13: 13 Sodium 3 gm/ Sodium Chloride IV.SIG 200 mls/hr Q6HR TICO Administration Latanoprost 1 drop 12/21/17 18:00 12/26/17 17:13 Xalatan 0.005% Opth Drops EACH EYE 1 drop QPM TICO Administration Levothyroxine Sodium 88 mcg 12/22/17 06:00 12/27/17 05:56 Synthroid PO 88 mcg DAILY@0600 TICO Administration Methylprednisolone Sodium Succinate 40 mg 12/26/17 20:00 12/27/17 13:12 Solumedrol Inj IV.PUSH 40 mg Q8H TICO Administration Metoclopramide HCl 5 mg 12/22/17 14:00 12/27/17 13:13 Reglan Inj IV.PUSH 5 mg Q8H TICO Administration Protocol Ondansetron HCl 4 mg 12/21/17 10:59 12/22/17 08:48 Zofran Inj IV.PUSH 4 mg Q6H PRN Administration NAUSEA OR VOMITING Ropinirole HCl 0.25 mg 12/21/17 11:03 12/24/17 20:47 Requip PO 0.25 mg TID PRN Administration Restless Leg(S) Objective Remarks: NAD. A/O x 3 CTAB RRR abd soft, minimal distention, NT. Inc c/d/i. Ext NT. no edema. Assessment and Plan - Plan POD #6 s/p Robotic Left Partial Nephrectomy -From surgical standpoint, she is doing well. -Ok to d/c home when cleared by Pulmonology. -ambulate, IS. -Discussed pathology results with her and her . -Appreciate all other help from other services.
--- NOTE | 2017-12-27 17:39 | P.PN ---
Subjective Interval history: Feels much better today and is on a diet. On O2 still. No chest pain. Wheezing is gone. Physical Exam Vital signs: Vital Signs 12/26/17 20:00 12/27/17 00:00 12/27/17 08:00 Temperature 97.9 F 97.7 F 97.6 F Pulse Rate 86 79 79 Respiratory Rate 17 18 17 Blood Pressure 154/71 H 132/62 153/74 H Pulse Oximetry 97 94 L 96 Pulse Oximetry [Exertion on Room Air] Pulse Oximetry [Exertion with Oxygen] Pulse Oximetry [Resting on Room Air] Pulse Oximetry [Resting with Oxygen] 12/27/17 12:00 12/27/17 15:47 Temperature 97.9 F Pulse Rate 82 Respiratory Rate 18 Blood Pressure 134/72 Pulse Oximetry 98 Pulse Oximetry [Exertion on Room Air] 77 L Pulse Oximetry [Exertion with Oxygen] 91 L Pulse Oximetry [Resting on Room Air] 92 L Pulse Oximetry [Resting with Oxygen] 93 L Intake & Output 12/26/17 12/27/17 12/27/17 18:59 06:59 18:59 Intake Total 1000 / 1000 560 / 560 100 / 100 Balance 1000 / 1000 560 / 560 100 / 100 Weight 64 kg Intake: IV 200 / 200 200 / 200 100 / 100 Unasyn Inj 3 GM In NS Inj 100 200 / 200 200 / 200 100 / 100 ML @ 200 mls/hr IV.SIG Q6HR TICO Rx#:[id number] Oral 800 / 800 360 / 360 Other: # Voids 6 3 Date of Last Bowel Movement 12/26/17 12/27/17 # Bowel Movements 3 2 Narrative: GENERAL: Alert and oriented, elderly W/F in no distress. SKIN: Warm and dry. HEAD: Normocephalic. EYES: No scleral icterus. No injection or drainage. NECK: Supple, trachea midline. No JVD. CARDIOVASCULAR: Regular rate and rhythm without murmurs, gallops, or rubs. RESPIRATORY: Breath sounds equal bilaterally.Occ Wheeze in upper chest. No accessory muscle use. GASTROINTESTINAL: Abdomen soft, Mild tenderness in LLQ , nondistended. dressed surgical wounds. MUSCULOSKELETAL: No cyanosis, or edema. BACK: Nontender without obvious deformity. No CVA tenderness.Neuro with no deficits. - Urinary Catheter Management Indwelling Urethral Catheter Cath placed during this visit: yes Reason for continuing: Hourly intake/output Insertion date: 12/21/17 Insertion time: 07:45 Results - Labs CBC & Chem 7: 12/26/17 04:20 12/26/17 04:20 Assessment and Plan - Plan 1. Acute hypoxemic and hypercapnic respiratory insufficiency Resolving. 2. Status post robotic left partial nephrectomy 3. COPD 4. Tobacco use. 5. Thrombocytopenia 6. Mild leukocytosis. 7. Hypertension. 8. Hyperlipidemia. 9. Hypothyroidism. 10. Restless leg syndrome. Plan D/C oxygen and keep sat >92 Bronchodilators(DuoNeb, nebs BID D/C Solu-Medrol D/C BiPAP Add Prednisone 10 mg BID X 5 days Continue with antibiotics and switch to PO augmentin Continue Requip for RLS Continue IS at bedside q2h
[2017-12-27] MEDS: Latanoprost 0.005% Opth Drops 2.5 ML Bottle EACH EYE SCH (18:15)
[2017-12-27] MEDS: predniSONE 10 MG Tablet PO SCH (21:03)
[2017-12-28] MEDS: Ampicillin/Sulbactam Inj 3 GM in Sodium Chloride 0.9% Inj 100 ML IV.SIG SCH ×4 (01:00→17:59)
[2017-12-28] MEDS: Levothyroxine 88 MCG Tablet PO SCH (05:52)
[2017-12-28] MEDS: Docusate Sodium 100 MG Capsule PO SCH (07:59)
[2017-12-28] MEDS: Dorzolamide-Timolol 2/0.5% Opth Drops 10 ML Bottle EACH EYE SCH (08:00)
[2017-12-28] MEDS: Budesonide-Formoterol 160/4.5 MCG 6 GM Inhaler INH SCH (08:00)
[2017-12-28] MEDS: amLODIPine 5 MG Tablet PO SCH (08:01)
[2017-12-28] MEDS: predniSONE 10 MG Tablet PO SCH (08:01)
--- NOTE | 2017-12-28 10:43 | P.PN ---
Subjective Interval history: This is a pleasant 77 y/o female with Hypothyroidism, Hypertension, Hyperlipidemia, status post elective Robotic left partial nephrectomy, status post Cardiac workup negative, Stable in her bedroom , discussed with nurse. Seen in her Bedroom, stable going to the restroom without difficulty, encourage ambulation. 12/26: Stable in her bedroom discussed with nurse Miss Marroquin, Potassium level 3.6 will replace, also her oxygen saturation over 92% at 5L/min. Oxygen by NC, no distress. 12/27: Seen in her bedroom stable already recommended by her Attending physician for discharge depend of business office specialist for discharge. 12/28: At this time discussed with patient and nurse, trying to wean her off Oxygen, working with Physical Therapy no nausea, vomit or diarrhea, no new issues, reported. Physical Exam Vital signs: Vital Signs 12/27/17 12:00 12/27/17 15:47 12/27/17 16:00 Temperature 97.9 F 97.8 F Pulse Rate 82 86 Respiratory Rate 18 19 Blood Pressure 134/72 131/80 Pulse Oximetry 98 97 Pulse Oximetry [Exertion on Room Air] 77 L Pulse Oximetry [Exertion with Oxygen] 91 L Pulse Oximetry [Resting on Room Air] 92 L Pulse Oximetry [Resting with Oxygen] 93 L 12/27/17 20:00 12/27/17 20:23 12/28/17 00:00 Temperature 97.9 F 97.9 F Pulse Rate 87 80 Respiratory Rate 17 18 Blood Pressure 153/72 H 139/63 Pulse Oximetry 96 93 L 98 Pulse Oximetry [Exertion on Room Air] Pulse Oximetry [Exertion with Oxygen] Pulse Oximetry [Resting on Room Air] Pulse Oximetry [Resting with Oxygen] 12/28/17 08:00 12/28/17 09:55 Temperature 97.2 F L Pulse Rate 70 Respiratory Rate 18 Blood Pressure 174/72 H Pulse Oximetry 93 L 98 Pulse Oximetry [Exertion on Room Air] Pulse Oximetry [Exertion with Oxygen] Pulse Oximetry [Resting on Room Air] Pulse Oximetry [Resting with Oxygen] Intake & Output 12/27/17 12/28/17 12/28/17 18:59 06:59 18:59 Intake Total 700 / 700 880 / 880 Balance 700 / 700 880 / 880 Weight 64.8 kg Intake: IV 100 / 100 300 / 300 Unasyn Inj 3 GM In NS Inj 100 100 / 100 300 / 300 ML @ 200 mls/hr IV.SIG Q6HR TICO Rx#:[id number] Oral 600 / 600 580 / 580 Other: # Voids 4 3 Date of Last Bowel Movement 12/27/17 12/27/17 12/27/17 # Bowel Movements 0 2 Narrative: GENERAL: Alert and oriented, elderly W/F in no distress. SKIN: Warm and dry. HEAD: Normocephalic. EYES: No scleral icterus. No injection or drainage. NECK: Supple, trachea midline. No JVD. CARDIOVASCULAR: Regular rate and rhythm without murmurs, gallops, or rubs. RESPIRATORY: Breath sounds equal bilaterally.Occ Wheeze in upper chest. No accessory muscle use. GASTROINTESTINAL: Abdomen soft, Mild tenderness in LLQ , nondistended. dressed surgical wounds. MUSCULOSKELETAL: No cyanosis, or edema. BACK: Nontender without obvious deformity. No CVA tenderness.Neuro with no deficits. - Urinary Catheter Management Indwelling Urethral Catheter Cath placed during this visit: yes Reason for continuing: Hourly intake/output Insertion date: 12/21/17 Insertion time: 07:45 Results - Labs CBC & Chem 7: 12/26/17 04:20 12/26/17 04:20 Assessment and Plan - Plan //Postoperative left partial nephrectomy Postoperative management as per surgical service Due to respiratory failure, have discontinued all narcotics. Okay to discharge from her Attending physician once cleared by business office specialist. //Acute hypercapnic respiratory failure //Acute hypoxic respiratory failure //Suspected aspiration pneumonia //Leukocytosis -ABG reviewed with pH 7.23, pCO2 65 Chest x-ray was right middle lobe infiltrate. Bilateral pleural effusions. BNP 115 = continue on Steroids IV, Bronchodilator Mucolytic incentive spirometry, continue Diet. = Patient denies any chest pain, however EKG done yesterday changed from 10 years ago. New right bundle branch block. = BNP only mildly elevated at 115. continue Unasyn. = ABG reviewed. PH is 7.45, PCO2 48, bicarb 33. Appreciate pulmonology assistance. Continue current management. Continue to monitor. recommended to be discharged on Prednisone for five days by business office specialist and at this time try to wean from Oxygen for discharge. //Intraoperative blood loss. Patient received 1 unit of PRBCs. = Hemoglobin 12.2 //Hyperlipidemia. Chronic. Continue home meds //Hypertension. Blood pressure acceptable. Continue home meds. //Glaucoma. Continue home drops //Hypothyroidism. Continue home medication. Check TSH //Restless leg syndrome. Continue home meds. //Hypokalemia 3.6 replaced today with 40 meq of Potassium chloride. DVT prophylaxis with SCDs. Code Status: Full Code Discussed Condition With: Patient and Nurse. Discharge Planning: as per Attending physician.
--- NOTE | 2017-12-28 12:49 | P.PN ---
Subjective Interval history: feels better. using O2 at 3 L. Sats drop <90 if off O2. No chest pains. Physical Exam Vital signs: Vital Signs 12/27/17 15:47 12/27/17 16:00 12/27/17 20:00 Temperature 97.8 F 97.9 F Pulse Rate 86 87 Respiratory Rate 19 17 Blood Pressure 131/80 153/72 H Pulse Oximetry 97 96 Pulse Oximetry [Exertion on Room Air] 77 L Pulse Oximetry [Exertion with Oxygen] 91 L Pulse Oximetry [Resting on Room Air] 92 L Pulse Oximetry [Resting with Oxygen] 93 L 12/27/17 20:23 12/28/17 00:00 12/28/17 08:00 Temperature 97.9 F 97.2 F L Pulse Rate 80 70 Respiratory Rate 18 18 Blood Pressure 139/63 174/72 H Pulse Oximetry 93 L 98 93 L Pulse Oximetry [Exertion on Room Air] Pulse Oximetry [Exertion with Oxygen] Pulse Oximetry [Resting on Room Air] Pulse Oximetry [Resting with Oxygen] 12/28/17 09:55 12/28/17 12:00 Temperature 97.8 F Pulse Rate 75 Respiratory Rate 17 Blood Pressure 123/65 Pulse Oximetry 98 94 L Pulse Oximetry [Exertion on Room Air] Pulse Oximetry [Exertion with Oxygen] Pulse Oximetry [Resting on Room Air] Pulse Oximetry [Resting with Oxygen] Intake & Output 12/27/17 12/28/17 12/28/17 18:59 06:59 18:59 Intake Total 700 / 700 880 / 880 Balance 700 / 700 880 / 880 Weight 64.8 kg Intake: IV 100 / 100 300 / 300 Unasyn Inj 3 GM In NS Inj 100 100 / 100 300 / 300 ML @ 200 mls/hr IV.SIG Q6HR TICO Rx#:[id number] Oral 600 / 600 580 / 580 Other: # Voids 4 3 Date of Last Bowel Movement 12/27/17 12/27/17 12/27/17 # Bowel Movements 0 2 Narrative: GENERAL: Alert and oriented, elderly W/F in no distress. SKIN: Warm and dry. HEAD: Normocephalic. EYES: No scleral icterus. No injection or drainage. NECK: Supple, trachea midline. No JVD. CARDIOVASCULAR: Regular rate and rhythm without murmurs, gallops, or rubs. RESPIRATORY: Breath sounds equal bilaterally. Occ Wheeze in upper chest. No accessory muscle use. GASTROINTESTINAL: Abdomen soft, Mild tenderness in LLQ , nondistended. dressed surgical wounds. MUSCULOSKELETAL: No cyanosis, or edema. BACK: Nontender without obvious deformity. No CVA tenderness.Neuro with no deficits. - Urinary Catheter Management Indwelling Urethral Catheter Cath placed during this visit: yes Reason for continuing: Hourly intake/output Insertion date: 12/21/17 Insertion time: 07:45 Results - Labs CBC & Chem 7: 12/26/17 04:20 12/26/17 04:20 Assessment and Plan - Plan 1. Acute hypoxemic and hypercapnic respiratory insufficiency Resolving. 2. Status post robotic left partial nephrectomy 3. COPD 4. Tobacco use. 5. Thrombocytopenia 6. Mild leukocytosis. 7. Hypertension. 8. Hyperlipidemia. 9. Hypothyroidism. 10. Restless leg syndrome. Plan D/C oxygen and keep sat >92 Bronchodilators(DuoNeb, nebs BID Get 6 min walk test and Arrange home O2 if sats <89 Will get Chest X ray today Prednisone 10 mg BID X 5 days Continue with antibiotics and switch to PO augmentin Continue Requip for RLS Continue IS at bedside q2h OK to go home if O2 is arranged and will see as OP in 2 weeks
--- NOTE | 2017-12-28 14:29 | XR ---
EXAM DATE: 12/28/2017 12:00 AM EDT AGE/SEX: 77 years / Female INDICATIONS: . Short of breath. CLINICAL DATA: This is the patient's subsequent encounter. Patient reports that signs and symptoms h ave been present for 1 week and indicates a pain score of 0/10. MEDICAL/SURGICAL HISTORY: None. . Breast implants. [place] [facility] [place]&L[place]/2017. . FINDINGS: AP and lateral views of the chest demonstrate the lungs to be symmetrically hyperaerated with biapica l emphysematous changes. There is some blunting of the left costophrenic angle and therefore, a small left-sided effusion cannot be excluded. I do not see a confluent infiltrate. Heart size is normal. B ilateral breast augmentation with some capsular calcification particularly on the left. Osseous struc tures are intact CONCLUSION: 1. Hyperinflation with biapical emphysematous changes. No confluent infiltrate. 2. Possible small left-sided pleural effusion versus pleural parenchymal scarring. 3. Bilateral breast augmentation with some capsular calcification particularly on the left. Electronically signed by: Jose Ramon Garcia MD 12/28/2017 2:28 PM EDT
--- NOTE | 2017-12-28 14:30 | P.PNURO ---
Subjective Patient symptoms today: No new c/o. no f/c/n/v, no pain. Doing better pulmonologywise, but difficult to keep O2 >90 without Oxygen. She did xray today and will do walk test again. Based on pulmonology note she can be d/c and see them in 2 weeks as outpt. Needs O2 to be arrange for home. Objective Vital Signs: Vital Signs 12/27/17 15:47 12/27/17 16:00 12/27/17 20:00 Temperature 97.8 F 97.9 F Pulse Rate 86 87 Respiratory Rate 19 17 Blood Pressure 131/80 153/72 H Pulse Oximetry 97 96 Pulse Oximetry [Exertion on Room Air] 77 L Pulse Oximetry [Exertion with Oxygen] 91 L Pulse Oximetry [Resting on Room Air] 92 L Pulse Oximetry [Resting with Oxygen] 93 L 12/27/17 20:23 12/28/17 00:00 12/28/17 08:00 Temperature 97.9 F 97.2 F L Pulse Rate 80 70 Respiratory Rate 18 18 Blood Pressure 139/63 174/72 H Pulse Oximetry 93 L 98 93 L Pulse Oximetry [Exertion on Room Air] Pulse Oximetry [Exertion with Oxygen] Pulse Oximetry [Resting on Room Air] Pulse Oximetry [Resting with Oxygen] 12/28/17 09:55 12/28/17 12:00 Temperature 97.8 F Pulse Rate 75 Respiratory Rate 17 Blood Pressure 123/65 Pulse Oximetry 98 94 L Pulse Oximetry [Exertion on Room Air] Pulse Oximetry [Exertion with Oxygen] Pulse Oximetry [Resting on Room Air] Pulse Oximetry [Resting with Oxygen] Intake & Output 12/27/17 12/28/17 12/28/17 18:59 06:59 18:59 Intake Total 700 / 700 880 / 880 100 / 100 Balance 700 / 700 880 / 880 100 / 100 Weight 64.8 kg Intake: IV 100 / 100 300 / 300 100 / 100 Unasyn Inj 3 GM In NS Inj 100 100 / 100 300 / 300 100 / 100 ML @ 200 mls/hr IV.SIG Q6HR TICO Rx#:[id number] Oral 600 / 600 580 / 580 Other: # Voids 4 3 Date of Last Bowel Movement 12/27/17 12/27/17 12/27/17 # Bowel Movements 0 2 Result Diagrams: 12/26/17 04:20 12/26/17 04:20 Medications and IVs: Active Medications Generic Name Dose Route Start Last Admin Trade Name Freq PRN Reason Stop Dose Admin Albuterol 1 ampul 12/22/17 16:09 12/22/17 17:51 Duoneb Neb (Prn) NEB 1 ampul Q4HR NEB PRN Administration SHORTNESS OF BREATH/WHEEZING Amlodipine Besylate 5 mg 12/22/17 09:00 12/28/17 08:01 Norvasc PO 5 mg DAILY TICO Administration Atorvastatin Calcium 20 mg 12/21/17 21:00 12/27/17 21:03 Lipitor PO 20 mg HS TICO Administration Budesonide/Formoterol Fumarate 2 puff 12/23/17 14:00 12/28/17 08:00 Symbicort 160/4.5 Mcg Inh INH 2 puff BID TICO Administration Docusate Sodium 100 mg 12/21/17 21:00 12/28/17 07:59 Colace PO Not Given BID TICO Dorzolamide/Timolol 1 drop 12/21/17 21:00 12/28/17 08:00 Cosopt 2/0.5% Opth Drops EACH EYE 1 drop BID TICO Administration Ampicillin Sodium/Sulbactam 100 mls @ 200 mls/hr 12/22/17 19:00 12/28/17 13: 39 Sodium 3 gm/ Sodium Chloride IV.SIG Infused Q6HR TICO Infusion Latanoprost 1 drop 12/21/17 18:00 12/27/17 18:15 Xalatan 0.005% Opth Drops EACH EYE 1 drop QPM TICO Administration Levothyroxine Sodium 88 mcg 12/22/17 06:00 12/28/17 05:52 Synthroid PO 88 mcg DAILY@0600 TICO Administration Metoclopramide HCl 5 mg 12/22/17 14:00 12/28/17 05:52 Reglan Inj IV.PUSH 5 mg Q8H TICO Administration Protocol Ondansetron HCl 4 mg 12/21/17 10:59 12/22/17 08:48 Zofran Inj IV.PUSH 4 mg Q6H PRN Administration NAUSEA OR VOMITING Prednisone 10 mg 12/27/17 21:00 12/28/17 08:01 Deltasone PO 01/02/18 23:59 10 mg BID TICO Administration Ropinirole HCl 0.25 mg 12/21/17 11:03 12/24/17 20:47 Requip PO 0.25 mg TID PRN Administration Restless Leg(S) Objective Remarks: NAD. A/O x 3 CTAB RRR abd soft, minimal distention, NT. Inc c/d/i. Ext NT. no edema. Assessment and Plan - Plan POD #7 s/p Robotic Left Partial Nephrectomy -From surgical standpoint, she is doing well. -Cleared to go home by pulmonology -D/c will be initiated. Needs O2 for home use to be arranged -Appreciate all other help from other services.
[2017-12-28 16:19] VITALS: BP 123/60; PULSE 73; RESP 18; TEMP 98; O2SAT 96
[2017-12-28] MEDS: Latanoprost 0.005% Opth Drops 2.5 ML Bottle EACH EYE SCH (17:59)
--- NOTE | 2018-01-19 12:42 | P.DS ---
Date of admission: 12/21/17 05:06 Primary care physician: PROVIDER NON STAFF Attending physician on discharge: Júnior Jones Anticipated date of discharge: 01/27/18 Brief History from admission: 77 yo female with small left renal mass. She underwent a Left Robotic PArtial Nephrectomy. Her hospital course was complicated by respiratory issues from her COPD, requiring Pulmonary evaluation. She underwent diuresis, started on 02. She was tolerating a regular diet and having BM by POD #3. She underwent a walking home O2 test and failed. She was discharged home without a chicas catheter or LEONOR drain, but on home O2. DS: Diagnosis - Discharge Diagnosis (1) COPD (chronic obstructive pulmonary disease) Status: Acute DS: Summary Hospital Course: 77 yo female with small left renal mass. She underwent a Left Robotic PArtial Nephrectomy. Her hospital course was complicated by respiratory issues from her COPD, requiring Pulmonary evaluation. She underwent diuresis, started on 02. She was tolerating a regular diet and having BM by POD #3. She underwent a walking home O2 test and failed. She was discharged home without a chicas catheter or LEONOR drain, but on home O2. - Time Spent with Patient Total time spent providing and/or coordinating discharge services: Greater than 30 minutes - Quality: VTE Deep Vein Thrombosis/Pulmonary Embolism Present on Admission: No Results Procedures completed during hospitalization: Left Robotic Partial Nephrectomy Completed studies during hospitalization: Pending at discharge 12/21/17 11:48 Surgical [PTH] Routine - Impressions ITS Impressions Abdomen X-Ray 12/22/17 00:00 CONCLUSION: Catheter overlies left iliac crest. Bowel gas pattern is normal Chest CTA 12/23/17 00:00 CONCLUSION: 1. No PE is identified. 2. Moderate to severe emphysema with small bilateral pleural effusions and adjacent compressive atelectasis and/or consolidation in both lower lobes. 3. Nonspecific subcutaneous air on the right of the inferior chest wall and upper abdomen. Suggest correlating clinically for any recent injection or laceration in this area. 4. Nonacute findings include coronary artery calcification, severe atherosclerotic disease of the aorta, and bilateral breast implants with features suggesting rupture. Chest X-Ray 12/28/17 00:00 CONCLUSION: 1. Hyperinflation with biapical emphysematous changes. No confluent infiltrate. 2. Possible small left-sided pleural effusion versus pleural parenchymal scarring. 3. Bilateral breast augmentation with some capsular calcification particularly on the left. Discharge Plan - Discharge Disposition Patient Disposition: W/Home Health Service - Discharge Condition Condition: Stable - Discharge Order Discharge Orders: Discharge Order (Routine); Ordered 12/28/17 Ordered By: Omar Méndez - Discharge Details Anticipated Discharge Date: 12/28/17 Discharge Comment: Discharge after xray and walk test. Needs O2 to be arranged for home - Physicians Team Primary Care Provider: NON STAFF,PROVIDER Attending Provider: Júnior Jones Other Providers: ; Henrique Duenas ; Fernando Ashford MD ; Paramjit Davies MD - Rxs /Orders / Referrals /Forms Prescriptions: Continue alendronate 70 mg Tablet 70 mg PO QWEEK amlodipine 5 mg Tablet 5 mg PO DAILY atorvastatin 20 mg Tablet 20 mg PO HS biotin 10,000 mcg Tablet,Disintegrating 10,000 mcg PO DAILY calcium carbonate [Calcium 500] 500 mg calcium (1,250 mg) Tablet 500 mg PO DAILY cholecalciferol (vitamin D3) [Vitamin D3] 1,000 unit Tablet,Chewable 1,000 unit PO DAILY dorzolamide-timolol 22.3-6.8 mg/mL Drops 1 drp OPHTHALMIC (EYE) BID latanoprost 0.005 % Drops 1 drp OPHTHALMIC (EYE) QPM levothyroxine 88 mcg Tablet 88 mcg PO DAILY ropinirole 0.25 mg Tablet 0.25 mg PO TID PRN (Reason: Restless Leg(S)) Ambulatory Orders / Order Sets / DME: Oxygen Tank (2-5 liter) (Routine) Location: Determined by Patient Ordered By: Fernando Ashford Referrals: NON STAFF,PROVIDER [Primary Care Provider] - See Instructions ([address] [phone] -Office opens at 8:00am, Call the morning of you would like to be seen. [place] offers same day appts. ) - Discharge Instructions Patient Printed Instructions: Hydrocodone/Acetaminophen (By mouth), Using Oxygen at Home (DC), Surgical Site Infections (DC), Laparoscopic Partial Nephrectomy (DC), Air Travel With Oxygen (GEN)
== END 2017-12-28 18:30 | disposition home health service (06) ==
LOC: HSDI 12-21 05:06 → N07 12-21 16:03
PROVIDERS: ADMIT Urology; ATTEND Urology